=== PATIENT | female | born 1940 | race Caucasian/White ===

== ENCOUNTER 2019-06-13 13:32 | Outpatient (RCR) | payer MEDICARE, OTHER, SELFPAY | END 2019-07-07 23:59 | disposition home or self-care (01) | LOC: SPT 13:32 | PROVIDERS: Family Provider Internal Medicine; PCP Internal Medicine; Referring Provider Internal Medicine; Visit Provider Internal Medicine | DX: H81.10 Benign paroxysmal vertigo, unspecified ear (principal) | CPT/HCPCS: 95992; 97162 ==

== ENCOUNTER 2019-08-19 10:41 | Emergency (ER) | payer MEDICARE, OTHER, SELFPAY ==
[2019-08-19] VITALS (29 sets, daily range): BP systolic 125–153; BP diastolic 61–93; PULSE 79–89; RESP 9–36; TEMP 36.6; O2SAT 92–100; BMI 25.8
--- NOTE | 2019-08-19 10:54 | ED_ITS ---
Entered by Nahomy Zuñiga, acting as scribe for Richard Joya DO HPI - Fall General: Chief Complaint: Fall Stated Complaint: fall Time Seen by Provider: 08/19/19 10:54 History of Present Illness: HPI Narrative: 79yo female presents with right wrist and right elbow pain post fall. Patient was running to the car when she stepped in a hole and fell. She denies any head injury or neck pain. Associated symptoms-after fall: Denies abdominal pain or chest pain Review of Systems Const: Denies: fever, chills, body aches, change in appetite, fatigue or malaise ENMT: Denies: throat pain, ear pain, nasal discharge or nasal congestion Card: Denies: chest pain, edema, shortness of breath on exertion or shortness of breath when lying down Resp: Denies: shortness of breath, productive cough or non-productive cough GI: Denies: abdominal pain, nausea, vomiting, vomiting blood, coffee grounds in vomit, diarrhea, constipation, bloating, blood in stool or black tarry stool : Denies: flank pain, difficulty urinating, painful urination, urinary frequency or urinary urgency Musc: Reports: extremity pain (Right elbow and wrist pain) Skin/Breast: Denies: rash or itching PFSH ED PFSH: Social History Smoking and tobacco status: never smoked Physical Exam Const: COMMON NORMALS: no apparent distress GENERAL APPEARANCE: cooperative and comfortable ORIENTATION/CONSCIOUSNESS: Yes awake, Yes oriented to person, Yes oriented to place and Yes oriented to time HENMT: COMMON NORMALS: normocephalic, head/scalp atraumatic, hearing grossly normal bilaterally, external ears normal, EAC's normal, TM's normal bilaterally, nasal mucous membranes and turbinates normal, moist oral mucous membranes and oropharynx normal HEAD & SCALP: normocephalic and atraumatic NOSE: nasal mucous membranes and turbinates normal EXTERNAL EAR: Yes external ears normal EXTERNAL AUDITORY CANAL: EAC's normal TYMPANIC MEMBRANE: TM's normal bilaterally Eye: COMMON NORMALS: PERRL, EOMs intact bilaterally, conjunctivae normal and no scleral icterus CONJUNCTIVA: Yes conjunctivae normal PUPIL: Yes PERRL Neck/C-Spine: COMMON NORMALS: full ROM, no lymphadenopathy, supple and no JVD Lymph: LYMPHATIC: no lymphadenopathy noted and no lymphedema noted Resp: COMMON NORMALS: normal respiratory effort, no retractions, no use of accessory muscles and clear to auscultation bilaterally AUSCULTATION: clear to auscultation bilaterally Cardio: COMMON NORMALS: no JVD, regular rate, regular rhythm and no murmurs RATE: regular rate RHYTHM: regular rhythm GI: COMMON NORMALS: soft to palpation and no hepatosplenomegaly AUSCULTATION: Yes normoactive bowel sounds PALPATION: Yes soft, No tender, No guarding and Yes no hepatosplenomegaly Extremity: COMMON NORMALS: normal to inspection, normal capillary refill, no clubbing, cyanosis or edema, no calf tenderness and no pedal edema RIGHT UPPER EXTREMITY: Yes elbow joint (Neurovascularly intact however there is obvious deformity suggestive of fracture and/or dislocation on physical exam confirmed) Neuro: SENSORIUM/ORIENTATION: Yes oriented to person, Yes oriented to place and Yes oriented to time Skin: COMMON NORMALS: no rashes or lesions noted GENERAL SKIN EXAM: no rashes or lesions noted Procedures Orthopedic Joint Reduction Joint #1: Time Out Performed: Yes Side: right Joint Reduction Location: elbow Analgesia: procedural sedation Post-reduction neuro exam: intact Post-reduction vascular: intact Post Reduction X-Ray Obtained: Yes Post Reduction X-Ray Results: reduced Splint Applied: Yes Patient Tolerated Procedure: well Additional Comments: Initially reduced under sedation. X-ray came to the post reduction film and the elbow was extended which caused the reduction to be lost. It was reduced again and then held in position in a 90 degree angle and splinted. Dr. Denise happened to be in the department was kind enough to assist us and applied the splint with the elbow at 90 degrees in the hand and forearm pronated. She appears to have a radial head fracture as well as a coronoid process fracture will leave in the splint she will follow-up with Dr. Denise in his office for definitive repair at a later date. Procedural Sedation Indication: fracture/dislocation reduction Preparation: monitoring and evaluation advisor applied, pulse oximeter, supplemental O2 applied, suction/airway equipment at bedside and IV secured Fentanyl: IV Fentanyl dose (mcg): 50 Midazolam: IV Midazolam dose (mg): 3 Patient Tolerated Procedure: well Complications: none Course ED course: Elbow dislocation reduced did slip back out during the post procedure x-ray it was put back into position and then splinted. 90 degrees with forearm pronated patient tolerated well Dr. Denise was kind enough to assist will make arrangements for her to follow-up with Dr. Denise in his office for definitive care. Vital Signs: Vital signs: Vital Signs Temperature 98 F 08/19/19 10:46 Pulse Rate 84 08/19/19 17:42 Respiratory Rate 14 08/19/19 17:42 Blood Pressure 125/79 08/19/19 17:42 Pulse Oximetry 97 08/19/19 17:42 Discharge Plan Discharge Patient Disposition: Home, Self-Care Clinical Impression: Closed fracture of radial head, Dislocation closed, elbow, Fx coronoid proc ulna-closed Condition: Stable Prescriptions: New hydrocodone-acetaminophen 5-325 mg tablet 1 tab PO Q6H PRN (Reason: pain) Qty: 20 RF: 0 No Action meloxicam 15 mg tablet 15 mg PO DAILY RF: 0 alprazolam 0.25 mg tablet 0.25 mg PO DAILY PRN (Reason: UNKNOWN) RF: 0 warfarin 5 mg tablet 5 mg PO DAILY RF: 0 omeprazole 20 mg capsule,delayed release(DR/EC) 20 mg PO DAILY RF: 0 Discharge Orders: Discharge Order (Routine); Ordered 08/19/19 Ordered By: Richard Joya Referrals: Augustine Denise MD [Physician] - Discharge Diet: Advance as tolerated Discharge Activity: Limit activity as instructed Activity Restrictions/Additional Instructions: Case management will call with appointment to orthopedics Discharge Date/Time: 08/19/19 17:43 Coding Level of Care Code ED Child Care Coordinator for Chg Fwd Exam Comprehensive The documentation recorded by the Yogesh melissa Bailey Leadawn, accurately reflects the service I personally performed and the decisions made by Mahnaz fournier Curtis L, DO Aug 19, 2019 10:41
--- NOTE | 2019-08-19 11:02 | XRR_ITS ---
PROCEDURE INFORMATION: Exam: XR Right Shoulder Exam date and time: 08/19/2019 11:52 AM Age: 79 years old Clinical indication: Injury or trauma; Fall; Initial encounter; Blunt trauma (contusions or hematomas; Shoulder; Right; Additional info: Fall pain TECHNIQUE: Imaging protocol: XR Right shoulder. Views: 2 or more views. COMPARISON: No relevant prior studies available. FINDINGS: Bones/joints: 1.1 cm intra-articular loose body versus unusual calcific tendinosis over the right greater tuberosity. Soft tissues: Normal. XR/XR shoulder RT min 2V* [id number] IMPRESSION: 1. 1.1 cm intra-articular loose body versus unusual calcific tendinosis over the right greater tuberosity. 2. No acute findings.
--- NOTE | 2019-08-19 11:02 | XRR_ITS ---
PROCEDURE INFORMATION: Exam: XR Right Elbow Exam date and time: 08/19/2019 11:52 AM Age: 79 years old Clinical indication: Injury or trauma; Fall; Initial encounter; Blunt trauma (contusions or hematomas; Elbow; Right; Additional info: Fall, pain TECHNIQUE: Imaging protocol: XR Right elbow. Views: 1 or 2 views. COMPARISON: US SoftTissue/Extrem Lmt [id number] 08/30/2018 2:14 PM FINDINGS: Bones/joints: Posterior dislocation of the olecranon and radial head with respect to the distal humerus. Displaced intra-articular fracture of the radial head. Soft tissues: Normal. XR/XR elbow RT 2V [id number] IMPRESSION: 1. Posterior dislocation of the olecranon and radial head with respect to the distal humerus. 2. Displaced intra-articular fracture of the radial head.
--- NOTE | 2019-08-19 11:02 | XRR_ITS ---
PROCEDURE INFORMATION: Exam: XR Right Hand Exam date and time: 08/19/2019 1:22 PM Age: 79 years old Clinical indication: Injury or trauma; Fall; Initial encounter; Additional info: Fall pain TECHNIQUE: Imaging protocol: XR Right hand. Views: 3 or more views. COMPARISON: US SoftTissue/Extrem t [id number] 08/30/2018 2:14 PM FINDINGS: Bones/joints: Normal. Soft tissues: Normal. XR/XR hand RT min 3V* [id number] IMPRESSION: No acute findings.
[2019-08-19] MEDS: morphine 4 mg/mL SDV 1 mL 2 MG IVP ×2 (11:22→15:43)
--- NOTE | 2019-08-19 12:27 | XRR_ITS ---
PROCEDURE INFORMATION: Exam: XR Right Wrist Exam date and time: 08/19/2019 1:22 PM Age: 79 years old Clinical indication: Injury or trauma; Fall; Initial encounter; Blunt trauma (contusions or hematomas; Wrist; Right; Additional info: Fall pain TECHNIQUE: Imaging protocol: XR Right wrist. Views: 3 or more views. COMPARISON: CR XR hand RT min 3V* [id number] 08/19/2019 11:30 AM FINDINGS: Bones/joints: Normal. Soft tissues: Normal. XR/XR wrist RT w scaphoid [id number] IMPRESSION: No acute findings.
[2019-08-19] MEDS: fentaNYL 50 mcg/mL INJ 2mL IVP (13:49)
[2019-08-19] MEDS: midazolam 1 mg/mL INJ 2 mL 3 MG IVP (13:50)
--- NOTE | 2019-08-19 14:00 | PC.NURSE ---
Conscious sedation reduction of right elbow. Patient sedated with 50mcg of Fentanyl and 3mg of Versed. Patient tolerated procedure well. Procedure completed at 1358. Post procedure Vitals: BP 153/89 P 85, 98% O2 3L NC, RR 16.
--- NOTE | 2019-08-19 14:05 | PC.NURSE ---
Patient beginning to arouse and ask if procedure is over. Patient reporting some pain in right elbow but denies other complaints at this time. BP 139/79 P 85 97% RR 16
--- NOTE | 2019-08-19 14:06 | XRR_ITS ---
PROCEDURE INFORMATION: Exam: XR Right Elbow Exam date and time: 08/19/2019 2:24 PM Age: 79 years old Clinical indication: Injury or trauma; Fall; Initial encounter; Blunt trauma (contusions or hematomas; Elbow; Right; Additional info: Post reduction TECHNIQUE: Imaging protocol: XR Right elbow. Views: 1 or 2 views. COMPARISON: CR XR elbow RT 2V [id number] 08/19/2019 11:30 AM FINDINGS: Bones/joints: There has been reduction of the elbow dislocation. There is a large elbow joint effusion. There is a markedly comminuted fracture of the radial head with multiple bone fragments in the anterior elbow joint. Soft tissues: Normal. XR/XR elbow RT 2V [id number] IMPRESSION: 1. There has been reduction of the elbow dislocation. 2. There is a markedly comminuted fracture of the radial head with multiple bone fragments in the anterior elbow joint.
--- NOTE | 2019-08-19 15:44 | CTR_ITS ---
PROCEDURE INFORMATION: Exam: CT Right Upper Extremity Without Contrast, Elbow Exam date and time: 08/19/2019 4:29 PM Age: 79 years old Clinical indication: Injury or trauma; Fall; Initial encounter; Blunt trauma (contusions or hematomas; Elbow; Right; Additional info: Dislocation/fracture TECHNIQUE: Imaging protocol: CT of the Right upper extremity without contrast was performed. Exam focused on the elbow. Total DLP: 1744.8 mGy-cm Radiation optimization: All CT scans at this facility use at least one of these dose optimization techniques: automated exposure control; mA and/or kV adjustment per patient size (includes targeted exams where dose is matched to clinical indication); or iterative reconstruction. COMPARISON: CR XR elbow RT 2V [id number] 08/19/2019 2:03 PM, two-view left elbow dated August 19, 2019, 11:35 a.m.. FINDINGS: Bones/joints: Severe comminuted displaced intra-articular fractures of the radial head and neck with with no pieces of the radial head normally articulated with the capitellum. Interval reduction of the previously noted elbow dislocation with normal articulation of the medial elbow/olecranon. Probable small comminuted displaced fractures of the coronoid process of the ulna. Soft tissues: Normal. CT/CT elbow RT wo con* [id number] IMPRESSION: 1. Severe comminuted displaced intra-articular fractures of the radial head and neck with with no pieces of the radial head normally articulated with the capitellum. 2. Interval reduction of the previously noted elbow dislocation with normal articulation of the medial elbow/olecranon. 3. Probable small comminuted displaced fractures of the coronoid process of the ulna. Radiation Dose CTDIVOL = (mGy): DLP = 1744.8 (mGy-cm)
[2019-08-19] MEDS: morphine 4 mg/mL SDV 1 mL IVP (17:11)
--- NOTE | 2019-08-21 13:47 | DCPLANNER ---
inside sales manager had message to schedule a follow up appointment for patient with ortho. inside sales manager called the ortho clinic, spoke with Pat, gave clinic patients information. inside sales manager was told that patients information would be printed and reviewed. Clinic will call onsite case manager and patient with appointment information.
--- NOTE | 2019-08-22 10:50 | DCPLANNER ---
Patient has a follow up appointment scheduled for 08.22.19 at 1:[address] Denise.
--- NOTE | 2019-08-23 10:36 | DCPLANNER ---
Patient attended appointment scheduled for 08.22.19 with ortho.
== END 2019-08-19 17:43 | disposition home or self-care (01) ==
PROVIDERS: Emergency Provider Family Medicine; Family Provider Internal Medicine; PCP Internal Medicine
DX: S52.121A Displaced fracture of head of right radius, initial encounter for closed fracture (principal); S52.131A Displaced fracture of neck of right radius, initial encounter for closed fracture; W19.XXXA Unspecified fall, initial encounter
CPT/HCPCS: 12345; 24655; 73030; 73070; 73110; 73130; 73200; 96374; 96375; 96376; 99283; 99284; J2250; J2270; J3010

== ENCOUNTER 2019-08-25 10:14 | Day surgery (SDC) | payer MEDICARE, OTHER, SELFPAY ==
[2019-08-24 10:08] VITALS: BMI 26.3
--- NOTE | 2019-08-24 10:49 | ECG_ITS ---
Measurements Intervals [place] Rate: 76 P: 56 HI: 151 QRS: 1 QRSD: 89 T: 30 QT: 366 QTc: 413 SINUS RHYTHM LOW QRS VOLTAGE IN PRECORDIAL LEADS [QRS DEFLECTION < 1.0 mV IN CHEST LEADS] PATTERN CONSISTENT WITH PULMONARY DISEASE No previous ECG available for comparison Electronically Signed On 08-24-2019 12:44:55 CDT by Seth Watt [email or web address]
[2019-08-24 11:12] LABS: INR 0.96 (0.8-1.2)
--- NOTE | 2019-08-24 11:27 | ANES.PREANE2 ---
Pre-Anesthetic Assessment Pre-Anesthetic Assessment: Height/Weight: Height 1.68 m Weight 73.936 kg Preop Diagnosis: Fracture dislocation right Proposed Procedure: Operation Date: 08/25/19 11:50 Proposed Procedures p Radial head replacement with repair of lateral ulnar collateral ligament 16672, 93378 S52.123A S53.106A(Right) - Augustine eDnise MD Social: Social History: No alcohol and No tobacco Exam: Pre-Anes Outpt Exam: alert, oriented x 3, clear to auscultation bilaterally and regular rate & rhythm Airway: Submandibular: WNL Cervical ROM: WNL MP: 1 Dentition: Other (upper front caps, ) History/ROS: No significant history except as noted Pulmonary: Pulmonary: None reported CV/HEM: CV/HEM: DVT and None reported : : None reported Hepatic: Hepatic: None reported GI: GI: GERD (controlled) Metabolic: Metabolic: None reported Musc/skel: Musc/skel: Lower Back Pain Neuropsych: Neuropsych: None reported Anesthetic Plan: ASA status: 2 Anesthesia: Anesthesia Evaluation, Eval. for regional block (Right ISB) and General Risk of > 500 ml blood loss (7ml/kg in children): No PFSH Anesthesia PFSH: Medical History Hx of blood clots Family History Brother Diabetes Father Stroke Social History Smoking and tobacco status: never smoked Alcohol intake: never Data Anesthesia Other Labs: Laboratory Results - last 48 hr 08/24/19 10:30 PT 12.80 INR 0.96 Cardiac Studies: No Data to Display
[2019-08-25] VITALS (15 sets, daily range): BP systolic 144–201; BP diastolic 81–118; PULSE 83–94; RESP 12–99; TEMP 36.2–37.3; O2SAT 90–100
--- NOTE | 2019-08-25 | XR_ITS ---
WS: [id number] XR elbow RT 2V [id number] REASON FOR EXAM: ORIF ELBOW FINDINGS: Radial head replacement in the ER utilizing C-arm fluoroscopy. The prosthesis is seen replacing the radial head. The alignment is satisfactory. XR/XR elbow RT 2V [id number] IMPRESSION: Radial head replacement satisfactory alignment conclusion the exam. Sukhdeep gonzalez se note there is calcification along the medial collateral ligament.
--- NOTE | 2019-08-25 | SCC_ITS ---
Procedure Done: Right radial head replacement/lateral ligament repair Fluoroscopic guidance was provided to Dr. Denise by the radiology department. C-arm images of the right elbow were saved for the patient's permanent record. [place]
[2019-08-25] MEDS: sodium chloride 0.9% 1,000 ML 30 ML IV (11:24)
--- NOTE | 2019-08-25 11:30 | ANES.PREANE2 ---
Pre-Anesthetic Assessment Pre-Anesthetic Assessment: Height/Weight: Height 1.68 m Weight 73.936 kg Preop Diagnosis: Fracture dislocation right Proposed Procedure: Operation Date: 08/25/19 11:50 Proposed Procedures p Radial head replacement with repair of lateral ulnar collateral ligament 38182, 49006 S52.123A S53.106A(Right) - Augustine Denise MD Last intake: Intake Last Liquid Date 08/24/19 Last Liquid Time 18:30 Last Solid Date 08/24/19 Last Solid Time 18:30 Exam: Pre-Anes Outpt Exam: alert, oriented x 3, clear to auscultation bilaterally and regular rate & rhythm Airway: Submandibular: WNL Cervical ROM: WNL MP: 1 Dentition: Caps (right top 2nd) CV/HEM: Comments: 2 blocks/2FOS without angina/BETHEA GI: GI: GERD and Hiatus hernia Comments: well controlled Musc/skel: Musc/skel: Lower Back Pain Comments: right radiculopathy Anesthetic Plan: ASA status: 3 Anesthesia: General Meds/Allergies Current Medications: Current Medications Generic Name Dose Route Start Last Admin Trade Name Freq PRN Reason Stop Dose Admin Sodium Chloride 1,000 mls @ 30 ml s/hr 08/25/19 11:00 08/25/19 11:24 Sodium Chloride 0.9% IV 08/26/19 10:59 30 mls/hr .Q24H LUPE Administration PFSH Anesthesia PFSH: Medical History Hx of blood clots Family History Brother Diabetes Father Stroke Social History Smoking and tobacco status: never smoked Alcohol intake: never Data Anesthesia Other Labs: Laboratory Results - last 48 hr 08/24/19 10:30 PT 12.80 INR 0.96 Cardiac Studies: No Data to Display
--- NOTE | 2019-08-25 11:32 | W.PM.OPSUD ---
Surgery/Procedure H&P Update DATE OF PROCEDURE: August 25, 2019 DATE H&P PERFORMED: 08/22/19 PREOP DIAGNOSIS: Fracture dislocation right PLANNED PROCEDURE: Operation Date: 08/25/19 11:50 Proposed Procedures p Radial head replacement with repair of lateral ulnar collateral ligament 51952, 72776 S52.123A S53.106A(Right) - Augustine Denise MD
--- NOTE | 2019-08-25 13:05 | PM.OP ---
Operative Report Date of procedure: August 25, 2019 Pre-op Diagnosis: Fracture dislocation right elbow Post-op diagnosis: same Post-op Findings: The patient had a comminuted fracture of the right radial head after a posterior lateral dislocation Procedure Done: Right radial head replacement/lateral ligament repair Implants: Quiroz Evolve 22 mm +2 radial head, 6.5 mm stent Pathology: none sent Anesthesia: General Tourniquet time (min): 45 Complications: None Findings: Patient had a comminuted fracture of the radial head consisting of 4 fragments. The elbow had instability under fluoroscopy as it was brought past 45 degrees short of full extension subluxation was noted Condition: stable Disposition: PACU Brief History: The patient is a 79-year-old female who fell 6 days ago with a resulting elbow dislocation with recurrent dislocations noted in the emergency room. CT scan revealed a comminuted radial head fracture. Surgical stabilization was chosen to replace the radial head and provide lateral instability and repair lateral ligaments in an effort to gain a full stable range of motion Procedure: The patient was taken to the operating room and given a general anesthesia. She was prepped and draped in the supine position with her right arm exposed over a fracture table. A 5 cm long incision was made beginning just proximal to the lateral epicondyle and dissection was carried down through the extensor musculature. Detachment was seen of the deep capsule off of the lateral condyle. Extensor carpi ulnaris tendon was a split allowing easy access to the comminuted radial head fragments. The fragments were removed. An oscillating saw was used to flatten the radial shaft. Subsequentially reamers were passed up to 7.5 mm where resistance was felt. The radial head was reassembled on the back table and the articular surface measured at 22 mm with a height of +2 mm. The radial head of that dimension was assembled onto a 6.5 mm stem. A trial reduction was accomplished and the construct visualized under fluoroscopy. The ulnohumeral joint appeared congruent and the elbow stable until 30 degrees of extension were reached. The final head and stem were assembled on the back table and inserted. Next a 1.8 mm Q fix mini anchor was placed in the lateral condyle. The posterior lateral capsule including fibers of the lateral ulnar collateral ligament were grasped and the free ends of that Q fix passed through that ligament. These were secured with simple half hitches. The sutures were then brought through the anterior and posterior musculature repairing those structures over the top and to bone. The split in the extensor digitorum commonness was closed with 2-0 Vicryl. The elbow was then brought through a range of motion with stability noted throughout. The skin edges were infiltrated with 12 cc of 0.5% Marcaine. Deep tissues were closed with 2-0 Vicryl and the skin with skin nathanael. Xeroflo gauze, 4 x 4's, web roll, and Pradeep wrap were applied. The patient was placed in a hinged elbow brace locked at 90 degrees. She was extubated taken recovery in stable condition.
[2019-08-25] MEDS: fentaNYL 50 mcg/mL INJ 2mL IVP ×2 (13:16→13:21)
[2019-08-25] MEDS: morphine 4 mg/mL SDV 1 mL 2 MG IVP ×2 (13:30→13:35)
[2019-08-25] MEDS: HYDROmorphone 1 mg/mL INJ 1 mL IVP (14:25)
[2019-08-25] MEDS: ondansetron 2 mg/ML SDV 2 mL 4 MG IVP (16:00)
== END 2019-08-25 16:15 | disposition home or self-care (01) ==
PROVIDERS: Anesthesiology; Family Provider Internal Medicine; PCP Internal Medicine; Visit Provider Orthopaedic Surgery
PROC: (CPT 24343; principal; 2019-08-25 11:50)
DX: S53.104A Unspecified dislocation of right ulnohumeral joint, initial encounter (principal); X58.XXXA Exposure to other specified factors, initial encounter; Z79.01 Long term (current) use of anticoagulants
CPT/HCPCS: 24343; 24666; 12345; 73070; 76000; 85610; 93005; 93010; 96374; 96375; C1713; C1776; J0690; J1170; J1580; J2001; J2270; J2405; J2704; J3010; J3490; J7030

== ENCOUNTER → 2019-09-18 09:21 | Outpatient (BNVA) | payer MEDICARE, OTHER, SELFPAY | PROVIDERS: Family Provider Internal Medicine; PCP Internal Medicine; Visit Provider Orthopaedic Surgery | DX: Z48.89 Encounter for other specified surgical aftercare (principal); S52.121A Displaced fracture of head of right radius, initial encounter for closed fracture; X58.XXXA Exposure to other specified factors, initial encounter; M25.571 Pain in right ankle and joints of right foot | CPT/HCPCS: 73080; 73610 ==

== ENCOUNTER 2019-09-20 08:31 | Outpatient (RCR) | payer MEDICARE, OTHER, SELFPAY | END 2019-10-05 23:59 | disposition home or self-care (01) | LOC: SOT 08:31 | PROVIDERS: Absent Provider Orthopaedic Surgery; Family Provider Internal Medicine; PCP Internal Medicine; Visit Provider Orthopaedic Surgery | DX: Z47.89 Encounter for other orthopedic aftercare (principal) | CPT/HCPCS: 97035; 97110; 97140; 97166 ==

== ENCOUNTER 2019-10-06 06:00 | Outpatient (RCR) | payer MEDICARE, OTHER, SELFPAY | END 2019-10-24 23:00 | disposition home or self-care (01) | LOC: SOT 06:00 | PROVIDERS: PCP Internal Medicine; Visit Provider Orthopaedic Surgery | DX: Z47.89 Encounter for other orthopedic aftercare (principal) | CPT/HCPCS: 97035; 97110; 97140 ==

== ENCOUNTER 2019-11-07 11:41 | Outpatient (CLI) | payer MEDICARE, OTHER, SELFPAY ==
[2019-11-07 13:01] LABS: Basophils % 0.8 %; Eosinophils # 0.1 10^3/uL (0.0-0.8); Eosinophils % 1.5 %; Hematocrit 41.4 % (37.0-47.0); Hemoglobin 13.4 g/dL (11.5-15.3); Lymphocytes # 1.6 10^3/uL (0.8-4.8); Lymphocytes % 30.4 %; Mean Corpuscular HGB Conc 32.4 g/dL (30.0-36.0); Mean Corpuscular Hemoglobin 30.5 pg (28.0-34.0); Mean Corpuscular Volume 94.1 fL (81-99); Mean Platelet Volume 11.6 fL (7.4-10.4); Monocytes # 0.4 10^3/uL (0.2-0.9); Neutrophils # 3.1 10^3/uL (1.8-7.7); Neutrophils % 60.1 %; Nucleated Red Blood Cells % 0 %; Platelet Count 274 10^3/cmm (130-400); Red Cell Distribution Width 13.4 % (12.1-15.1); White Blood Count 5.2 10^3/uL (4.0-10.0)
[2019-11-07 13:14] LABS: Alanine Aminotransferase 23 U/L (0-33); Albumin Level 3.8 g/dL (3.5-5.2); Alkaline Phosphatase 47 IU/L (35-105); Anion Gap 16.8 (5-19); Aspartate Amino Transferase 30 U/L (0-32); Blood Urea Nitrogen 11 mg/dL (8-23); Calcium 9.8 mg/dL (8.5-10.5); Carbon Dioxide 24 mmol/L (22-29); Chloride 101 mmol/L (98-107); Ferritin 130 ng/mL (15-150); Globulin 2.9 g/dL (1.3-4.6); Glucose 163 mg/dL (65-115); Iron 79 ug/dL (37-145); Osmolality Calculated 286 mOsm/kg (285-295); Percent Saturation 28.7 % (20-50); Potassium 3.8 mmol/L (3.5-5.1); Sodium 138 mmol/L (136-145); Total Bilirubin 0.3 mg/dL (0.15-1.2); Total Iron Binding Capacity 275 mcg/dl; Total Protein 6.7 g/dL (6.6-8.7); Unsaturated Iron Binding 196 ug/dL (112-347)
--- NOTE | 2019-11-11 11:24 | ONC FU_ITS ---
Dr. Velez Patient Follow-Up Note Patient: Kimberli Everett Unit #: [id number]: 1940 Dicatated By: Jason Velez M.D.Date of Visit:Nov 07, 2019 Onc Med Follow-up/Prog Note Chief Complaint: Hemochromatosis. History of Present Illness: This is a 79 year-old woman with hemochromatosis/iron overload. She had seen Dr. Carolina initially in February 2014. At that time she was complaining of right upper quadrant abdominal pain, and she complained of pain in her right hip and right leg. She also complained of severe weakness/fatigue. Her lab studies at that time included an unremarkable CBC showing hemoglobin 14.4 g, white blood cell count 5500, and platelet count 198,000. Comprehensive metabolic profile showed mildly elevated SGOT and SGPT levels with normal bilirubin and alkaline phosphatase. Her serum iron and transferrin saturation were at the upper limit of normal at 149 mcg/dL and 54% respectively. Her serum ferritin was significantly elevated at 2065 ng/mL. Viral hepatitis profile was negative. 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 It was negative for the H63D and the S65C mutations. CT abdomen/pelvis on 03/16/14 showed no acute abnormality. The liver was noted to be diffusely decreased in attenuation, consistent with fatty infiltration. The report did not mention whether that had changed at all compared to the previous study in 2009. Liver biopsy on 03/21/2014 showed moderate iron deposition (2+/4+) consistent with hemochromatosis. There was noted to be macrovesicular fatty change but with no significant active inflammation. She started a phlebotomy program, initially with a half unit phlebotomy and subsequently with full phlebotomies weekly. She initially felt somewhat weaker and lightheaded following the phlebotomies. A repeat ferritin level from this laboratory on 04/09/2014 was down to 1233 ng/mL. She then continued the phlebotomies, but just a half unit at a time. As of June 2014 the ferritin had declined just slightly, to 1120 ng/mL. However, on a repeat study in September 2014 it had declined significantly, to 99.9 ng/mL. Her transferrin saturation at that point was low at 7.9%, and the phlebotomies were stopped. I had seen her for a scheduled a visit on 06/19/2015. At that time she reported that she still had pain and swelling in the right leg following the surgery in November 2014. She complained of being tired, but she was not having shortness of breath or chest pain. A venous Doppler of the right leg was positive for deep vein thrombosis involving the right superficial femoral and popliteal veins and the peroneal trunk and to a lesser extent the right common femoral vein. The thrombus was partially occlusive. She then started on anticoagulation with rivaroxaban. She was later transitioned to Lovenox and then to warfarin. I had seen her for a scheduled follow-up visit on 06/16/2017. At that time her ferritin level had increased 149 ng/mL, and I did have her restart 1/2 unit phlebotomies monthly. As of November 2017 the ferritin was back down to 35.9 ng/mL with transferrin saturation 14.2%, and at that point I did stop her phlebotomies. Her medical history is otherwise significant for degenerative arthritis/degenerative disease of the spine and GERD. In 2009 she had received 2 doses of iron sucrose IV. She had a low serum iron at that time, but she was not actually anemic. She has had no other prior medical illnesses. In November 2014 she fell and sustained fractures to the right ankle, including a distal fibula fracture and a posterior shelf tibial fracture. She required open reduction/fixation. She is a nonsmoker, and she does not drink alcohol. INTERIM HISTORY: She is seen for a scheduled visit. She has not been feeling very good, but that seems largely related to the fact that she is still depressed over her 's . She says her energy is not good, but she just attributes that to being lazy and not wanting to do anything. She has doing light work at home, though. ECOG score is 1. Last week she had seen Dr. Carolina due to sharp pains in her abdominal area. She was started on antibiotic therapy with Cipro and Flagyl for suspected diverticulitis. She says the pain is getting better. She has had decrease in appetite associated with the antibiotics. She has not had fever or night sweats. She does not complain of shortness of breath, cough, or chest pain. She has had some nausea. Her acid reflux is managed pretty well with omeprazole. Bowel function has been okay, though she sometimes has urgency with defecation. She has some urinary frequency and nocturia. She has chronic back pain, which is managed adequately with meloxicam. She has been having headache in the occipital area, which tends to be worse when she is lying in bed. She also has been having significant problems with balance/equilibrium. She sometimes has numbness in her right leg, from the knee down to the toes. She also has some tingling in her arms and hands. Medications: Acetaminophen ER 1 Tablet (of 650 mg) Tablet, controlled release Oral b.i.d. PRN, ALPRAZolam 1 (0.25 mg) Tablet Oral daily PRN, Cipro 1 (500 mg) Tablet Oral b.i.d., Coumadin 1 Tablet (of 5 mg) Oral daily, Flagyl (500 mg) Capsule Oral t.i.d., Meloxicam 1 Tablet (of 15 mg) Oral daily, Omeprazole 1 (20 mg) Capsule Delayed Release Oral daily Allergies: No Known Allergies. Review of Systems: Constitutional - She generally feels depressed. Her energy is low and she doesn't feel like doing much, but she is able to do light work in and around the house. Her appetite is good and weight is stable. No fever, night sweats, or hot flashes. ECOG score is 1, ENMT - She is having sinus drainage. No mouth sores. No sore throat or difficulty swallowing, Hematologic/Lymphatic - No abnormal bruising or bleeding, Respiratory - No shortness of breath. No cough. No pleuritic pain or hemoptysis, Cardiovascular - No angina pain. No palpitations, Gastrointestinal - No nausea or vomiting. Her heartburn is well controlled with Prilosec. No diarrhea or constipation. No blood in the stool or black stools. She is currently on Flagyl and Cipro for diverticulitis, Genitourinary (F) - No dysuria or hematuria. No urinary frequency. No urgency or incontinence, Musculoskeletal - Her arthritis pain is adequately managed with meloxicam, Integumentary - No skin complications, Neurologic - She has headaches. She is having persistent dizziness. She has intermittent numbness in her right leg and toes. She also has some tingling in her hands and fingers. No other focal neurologic symptoms, Psychiatric - She is taking a low dose of alprazolam for anxiety. She is still significantly depressed since losing her . No insomnia. Vital Signs: Performed on Nov 07, 2019 13:11 Height - 66.00 in Weight - 163.6 lbs (HIGH) BSA - 1.84 sq.m BMI - 26.41 Temperature - 97.7 F (LOW) Pulse - 87 /min Respiration - 17 /min BP - 120/71 mm(hg) O2 Sat - 96 % Pain - 0 Physical Examination: Constitutional - She looks pretty good generally, Eyes - Sclerae nonicteric. Conjunctivae clear, ENMT - There are no other lesions noted in the oral cavity, Hematologic/Lymphatic - No cervical, clavicular, or axillary adenopathy, Respiratory - Lungs are clear with good air movement bilaterally, Cardiovascular - Heart rhythm is regular. There is a II/ systolic murmur. There is no gallop or rub noted, Abdomen - Soft. Liver and spleen are not enlarged. There is no abdominal mass or ascites noted and there is no inguinal adenopathy, Extremities - No edema, Neurologic - No focal neurologic deficits noted. Lab/Imaging: Test performed on Nov 07, 2019 11:58 Ferritin 130 ng/mL Iron 79 mcg/dL Sodium 138 mmol/L Iron Binding Capacity (TIBC) 275 mcg/dl Potassium 3.8 mmol/L % Iron Saturation 28.7 % Chloride 101 mmol/L CO2 24 mmol/L UIBC 196 mcg/dL Anion Gap 16.8 BUN 11 mg/dL Creatinine 0.7 mg/dL Cr Clearance (Est) 78.8500 mL/min Glucose 163 mg/dL Calcium 9.8 mg/dL Protein, Total 6.7 g/dL Albumin 3.8 g/dL Globulin 2.9 g/dL Bilirubin, Total 0.3 mg/dL ALT (SGPT) 23 U/L AST (SGOT) 30 U/L Alkaline Phosphatase 47 IU/L WBC 5.2 10 3/uL RBC 4.40 10 6/uL HGB 13.4 g/dL HCT 41.4 % MCV 94.1 fL MCH 30.5 pg MCHC 32.4 g/dL RDW 13.4 % Platelet Count 274 10 3/cmm MPV 11.6 fL Neutrophils 3.1 10 3/uL Lymphocytes 1.6 10 3/uL Monocytes 0.4 10 3/uL Eosinophils 0.1 10 3/uL Basophils 0.0 10 3/uL Neutrophil % 60.1 % Lymphocyte % 30.4 % Monocyte % 7.0 % Eosinophil % 1.5 % Basophils % 0.8 % Impression: 1. 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 Based on the ferritin level and the results of the liver biopsy, she did appear to have associated iron overload. She had complained of right upper quadrant abdominal pain, and she had mildly elevated SGOT/SGPT levels along with CT evidence of fatty infiltration in the liver. The fatty infiltration also was confirmed by liver biopsy, but the clinical significance of that finding has been uncertain. 2. She started a phlebotomy program for the hemochromatosis in March 2014. She was able to tolerate only half unit phlebotomies. Initially she was showing just a very gradual decline in her ferritin level, but it then dropped rather precipitously, and by September 2014 she actually appeared to be iron deficient. 3. She has since then been monitored on observation. As of her followup visit on 06/19/2015 her transferrin saturation and ferritin levels were in target range. 4. In June 2015 she had reported persistent pain and swelling in the right leg following open reduction/fixation for a traumatic fracture in November 2014. A venous Doppler did show evidence of partially occlusive deep vein thrombosis of the right leg. She was then started on anticoagulation with rivaroxaban. In November 2015 her anticoagulation was transitioned to Lovenox and subsequently to warfarin. 5. Her medical illnesses otherwise have been limited to GERD and degenerative arthritis. As of March 2016 her serum iron studies and ferritin remained in target range. She was then followed on observation/expectant management for the hemochromatosis. She continued anticoagulation with warfarin. As of her follow-up visit in June 2017 her ferritin at increased slightly, and at that point she restarted 1/2 unit phlebotomies monthly. As of November 2017 her transferrin saturation and ferritin levels were back down and she then stopped phlebotomies. During follow-up, the transferrin saturation and ferritin had basically remained stable. In August 2019 she suffered a traumatic fracture of the right radial head. She underwent open reduction with right radial head replacement/lateral ligament repair. She had good recovery from the surgery, but she has still not felt good generally. Much of that she attributes to ongoing depression followiong her 's . Recently she has been on antibiotic therapy for suspecteddiverticulitis. Those symptoms have been improving, but she reports having significant dizziness/dysequilibrium. Since her last visit, there has been increase in both the transferrin saturation and the ferritin level, which is now a little above target range. Plan: She will complete the antibiotic therapy as prescribed. I did suggest that she try stopping meloxicam, to see if that will help with her dizziness. If not, I will have her evaluated with head MRI. I will tentatively plan a follow-up visit in 3 months. If the transferrin saturation and ferritin continue to increase, I will restart phlebotomies. Signed By: Jason Velez M.D. <<Signature on File>>
== END 2019-11-07 11:42 | disposition home or self-care (01) ==
LOC: ONCMED 11:45
PROVIDERS: PCP Internal Medicine; Visit Provider Internal Medicine Medical Oncology
DX: E83.110 Hereditary hemochromatosis (principal); R42 Dizziness and giddiness; K76.0 Fatty (change of) liver, not elsewhere classified; K21.9 Gastro-esophageal reflux disease without esophagitis; M19.90 Unspecified osteoarthritis, unspecified site; F32.9 Major depressive disorder, single episode, unspecified; Z86.718 Personal history of other venous thrombosis and embolism; Z79.01 Long term (current) use of anticoagulants; Z79.2 Long term (current) use of antibiotics
CPT/HCPCS: 36415; 80053; 82728; 83540; 83550; 85025; 99214

== ENCOUNTER 2019-11-20 07:49 | Outpatient (CLI) | payer MEDICARE, OTHER, SELFPAY ==
--- NOTE | 2019-11-20 07:57 | MR_ITS ---
WS: [id number] MRI CERVICAL SPINE NONCONTRAST AND CONTRAST TECHNIQUE: Sagittal T1, T2 and STIR imaging. Axial T2, gradient, and fiesta imaging. Post gadolinium imaging. CLINICAL INFORMATION: NUMBNESS BOTH ARMS NUMBNESS RIGHT LEG NECK AND BACK PAIN COMPARISON: None. FINDINGS: Straightening with slight reversal the normal cervical lordosis. No high-grade central canal narrowin g. Cord signal is normal. Mild disc bulging mid cervical spine at C3-C4 C4-C5 and C5-C6. No abnormal gadolinium enhancement. No evidence of metastatic disease. C2-C3: Normal. C3-C4: Mild disc osteophytic ridging. Slight effacement of ventral thecal sac. Spinal canal and shon en are patent. C4-C5: Small central disc osteophyte protrusion. Mild facet arthropathy. Mild left and no significant right foraminal narrowing. Mild central canal stenosis. Mild facet arthropathy. C5-C6: Disc osteophyte complex with endplate ridging. Mild central canal stenosis. Moderate right and mild left bony foraminal narrowing. Mild facet arthropathy. C6-7: Mild disc osteophyte complex with endplate ridging. Mild central canal stenosis. Mild left and no significant right foraminal narrowing. Mild facet arthropathy C7-T1: Normal. Visualized brain stem structures: Normal. Prevertebral soft tissues: Normal. MR/MR cervical spine wo/w [id number] IMPRESSION: 1. Straightening with slight reversal of the normal cervical lordosis. 2. No abnormal gadolinium enhancement. 3. Cord signal is normal. 4. Disc osteophyte complex C5-C6 with mild central canal stenosis and moderate right foraminal narrowing. 5. Mild central canal stenosis C4-C5 and C6-C7.
--- NOTE | 2019-11-20 07:57 | MR_ITS ---
WS: [id number] MRI HEAD WITH CONTRAST TECHNIQUE: Sagittal T1, T2 axial, T2 axial FLAIR, axial susceptibility weighted imaging, axial diffus ion weighted images, and coronal T2 images were obtained. Pre and post-T1 axial and post T1 coronal i mages. ADC and FSPGR images. CLINICAL INFORMATION: HEADACHE DIZZINESS COMPARISON: None. FINDINGS: No evidence of restricted diffusion to suggest acute ischemia. Ventricular system and basal cisterns are patent. Mild small vessel changes. Moderate parenchymal volume loss. Normal posterior fossa. Norm al vascular flow voids at the skull base. No extra-axial fluid collections. No evidence of mass or mass effect. Paranasal sinuses and mastoid air cells well aerated. Mild mucosa l thickening in the paranasal sinuses. Normal optic chiasm and pituitary infundibulum. Mild symmetric atrophy involving the temporal lobes and hippocampal formations. No hemosiderin on susceptibly weighted images. No abnormal gadolinium enhancement. Normal optic chiasm and pituitary infundibulum.Normal dural venou s sinuses. MR/MR head wo/w con [id number] IMPRESSION: 1. No evidence of restricted diffusion to suggest acute ischemia. 2. Mild small vessel changes with moderate parenchymal volume loss. 3. No abnormal intracranial enhancement. No intracranial enhancing lesions. 4. No hemosiderin on susceptibly weighted images. 5. Paranasal sinuses and mastoid air cells are well aerated.
== END 2019-11-20 07:50 | disposition home or self-care (01) ==
LOC: RADWPI 07:53
PROVIDERS: PCP Internal Medicine; Visit Provider Internal Medicine Medical Oncology
DX: R51 Headache (principal); R42 Dizziness and giddiness; M54.2 Cervicalgia; M54.9 Dorsalgia, unspecified; R20.0 Anesthesia of skin; M25.78 Osteophyte, vertebrae; M48.02 Spinal stenosis, cervical region
CPT/HCPCS: 70553; 72156; A9579

== ENCOUNTER 2019-11-22 09:53 | Outpatient (CLI) | payer MEDICARE, OTHER, SELFPAY ==
--- NOTE | 2019-11-22 10:03 | MR_ITS ---
WS: [id number] MRI LUMBAR SPINE WITH CONTRAST TECHNIQUE: Sagittal T1, T2 and STIR imaging. Axial T1 and T2 imaging. Post gadolinium imaging was obt ained. CLINICAL INFORMATION: RIGHT LEG NUMBNESS COMPARISON: MRI lumbar February 26, [address] August 24, 2018 FINDINGS: Mild lumbar curve. No acute compression. Chronic anterior wedging at L2 is unchanged. Previously desc ribed herniated disc material at L3-4 appears improved with disc involution. L1-L2: Normal. L2-L3: Mild annular bulging. Mild facet arthropathy. Spinal canal and foramen are patent. L3-L4: Mild annular bulging with narrowing of the subarticular recess bilaterally. Slight encroachmen t traversing L4 nerve roots. Mild left and no significant right foraminal narrowing. Mild facet arthr opathy. Spinal canal is patent. L4-L5: Mild annular bulging with slight effacement of ventral thecal sac. Narrowing of the subarticul ar recess bilaterally. Encroachment on the traversing L5 nerve roots. Mild right and no significant l eft foraminal narrowing. Mild facet arthropathy. L5-S1: Mild annular bulging with osteophytic ridging. Slight effacement of ventral thecal sac. Spinal canal and foramen are patent. Mild facet arthropathy. Small right renal cyst. Mild central canal stenosis in cervical spine seen on the smoking tobacco cutter operator imaging. MR/MR lumbar spine wo/w con [id number] IMPRESSION: 1. Mild lumbar curve. Chronic anterior wedging at L2. No high-grade central ca nal stenosis. 2. Previously described L3-4 disc herniation has improved with disc involution . Mild narrowing of the L3-4 subarticular recess today with mild left foraminal narrowing. 3. Annular bulging L4-5 with narrowing of the subarticular recess bilaterally and encroachment traversing L5 nerve roots. Mild right foraminal narrowing. 4. Shallow central protrusion L5-S1. Slight effacement of ventral thecal sac. Spinal canal and foramen are patent at this level.
== END 2019-11-22 09:54 | disposition home or self-care (01) ==
LOC: RADWPI 10:02
PROVIDERS: Family Provider Internal Medicine; PCP Internal Medicine; Visit Provider Internal Medicine Medical Oncology
DX: M54.2 Cervicalgia (principal); M54.9 Dorsalgia, unspecified; R20.0 Anesthesia of skin; M51.27 Other intervertebral disc displacement, lumbosacral region; M51.26 Other intervertebral disc displacement, lumbar region; M48.56XA Collapsed vertebra, not elsewhere classified, lumbar region, initial encounter for fracture
CPT/HCPCS: 72158; A9579

== ENCOUNTER 2020-02-20 14:25 | Outpatient (CLI) | payer MEDICARE, OTHER, SELFPAY ==
[2020-02-20 14:55] LABS: Basophils % 0.7 %; Eosinophils # 0.1 10^3/uL (0.0-0.8); Eosinophils % 1.2 %; Hematocrit 42.4 % (37.0-47.0); Hemoglobin 13.7 g/dL (11.5-15.3); Lymphocytes # 2.2 10^3/uL (0.8-4.8); Lymphocytes % 37.2 %; Mean Corpuscular HGB Conc 32.3 g/dL (30.0-36.0); Mean Corpuscular Volume 92.8 fL (81-99); Mean Platelet Volume 10.8 fL (7.4-10.4); Monocytes # 0.3 10^3/uL (0.2-0.9); Monocytes % 5.8 %; Neutrophils # 3.24 10^3/uL (1.8-7.7); Neutrophils % 54.8 %; Nucleated Red Blood Cells % 0 %; Platelet Count 245 10^3/cmm (130-400); Red Blood Count 4.57 10^6/uL (4.1-5.3); Red Cell Distribution Width 13.5 % (12.1-15.1); White Blood Count 5.9 10^3/uL (4.0-10.0)
[2020-02-20 15:03] LABS: Alanine Aminotransferase 27 U/L (0-33); Albumin Level 4.1 g/dL (3.5-5.2); Alkaline Phosphatase 50 IU/L (35-105); Anion Gap 14.9 (5-19); Aspartate Amino Transferase 42 U/L (0-32); Blood Urea Nitrogen 11 mg/dL (8-23); Calcium 9.6 mg/dL (8.5-10.5); Carbon Dioxide 25 mmol/L (22-29); Chloride 101 mmol/L (98-107); Globulin 3.1 g/dL (1.3-4.6); Glucose 114 mg/dL (65-115); Osmolality Calculated 281 mOsm/kg (285-295); Potassium 3.9 mmol/L (3.5-5.1); Sodium 137 mmol/L (136-145); Total Bilirubin 0.4 mg/dL (0.15-1.2); Total Protein 7.2 g/dL (6.6-8.7)
[2020-02-20 16:26] LABS: Ferritin 157 ng/mL (15-150); Iron 64 ug/dL (37-145); Percent Saturation 21.9 % (20-50); Total Iron Binding Capacity 291 mcg/dl; Unsaturated Iron Binding 227 ug/dL (112-347)
--- NOTE | 2020-02-24 12:24 | ONC FU_ITS ---
Dr. Velez Patient Follow-Up Note Patient: Kimberli Everett Unit #: [id number]: 1940 Dicatated By: Jason Velez M.D.Date of Visit:Feb 20, 2020 Onc Med Follow-up/Prog Note Chief Complaint: Hemochromatosis. History of Present Illness: This is a 79 year-old woman with hemochromatosis/iron overload. She had seen Dr. Carolina initially in February 2014. At that time she was complaining of right upper quadrant abdominal pain, and she complained of pain in her right hip and right leg. She also complained of severe weakness/fatigue. Her lab studies at that time included an unremarkable CBC showing hemoglobin 14.4 g, white blood cell count 5500, and platelet count 198,000. Comprehensive metabolic profile showed mildly elevated SGOT and SGPT levels with normal bilirubin and alkaline phosphatase. Her serum iron and transferrin saturation were at the upper limit of normal at 149 mcg/dL and 54% respectively. Her serum ferritin was significantly elevated at 2065 ng/mL. Viral hepatitis profile was negative. 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 It was negative for the H63D and the S65C mutations. CT abdomen/pelvis on 03/16/14 showed no acute abnormality. The liver was noted to be diffusely decreased in attenuation, consistent with fatty infiltration. The report did not mention whether that had changed at all compared to the previous study in 2009. Liver biopsy on 03/21/2014 showed moderate iron deposition (2+/4+) consistent with hemochromatosis. There was noted to be macrovesicular fatty change but with no significant active inflammation. She started a phlebotomy program, initially with a half unit phlebotomy and subsequently with full phlebotomies weekly. She initially felt somewhat weaker and lightheaded following the phlebotomies. A repeat ferritin level from this laboratory on 04/09/2014 was down to 1233 ng/mL. She then continued the phlebotomies, but just a half unit at a time. As of June 2014 the ferritin had declined just slightly, to 1120 ng/mL. However, on a repeat study in September 2014 it had declined significantly, to 99.9 ng/mL. Her transferrin saturation at that point was low at 7.9%, and the phlebotomies were stopped. I had seen her for a scheduled follow-up visit on 06/16/2017. At that time her ferritin level had increased 149 ng/mL, and I did have her restart 1/2 unit phlebotomies monthly. As of November 2017 the ferritin was back down to 35.9 ng/mL with transferrin saturation 14.2%, and at that point I did stop her phlebotomies. Her medical history is otherwise significant for degenerative arthritis/degenerative disease of the spine and GERD. In 2009 she had received 2 doses of iron sucrose IV. She had a low serum iron at that time, but she was not actually anemic. She has had no other prior medical illnesses. In November 2014 she fell and sustained fractures to the right ankle, including a distal fibula fracture and a posterior shelf tibial fracture. She required open reduction/fixation. The procedure was complicated by a fairly extensive deep vein thrombosis of the right leg in June 2015. She has remained on anticoagulation with warfarin. In August 2019 she suffered a traumatic fracture of the right radial head. She underwent open reduction with right radial head replacement/lateral ligament repair. She is a nonsmoker, and she does not drink alcohol. INTERIM HISTORY: She is seen for a scheduled visit. She has been feeling pretty good generally, though she does have some fatigue. She just attributes it to being lazy. ECOG score is 1. She says her appetite is not real good. Her weight is down 8 pounds. She does not have fever or night sweats. He says she has been having problems with fluid behind the left eardrum and she also developed a knot behind her left ear. However, that has been getting better since she had a bad tooth pulled. Her breathing has been okay. She does not complain of cough, and she has not been having chest pain. She has no GI complaints. She was treated for bladder infection and she thinks she also may have had a yeast infection, but that seems to be better now. She has some pain in the lower back area. She has some pain in her right arm and wrist. She does not complain of headache. She sometimes gets dizzy when she is lying down. She occasionally has numbness in her arms/hands. Medications: Acetaminophen ER 1 Tablet (of 650 mg) Tablet, controlled release Oral b.i.d. PRN, ALPRAZolam 1 (0.25 mg) Tablet Oral daily PRN, Claritin-D 12 Hour 1 Tablet (of 5-120 mg) Tablet SR 12 HR Oral daily, Coumadin 1 Tablet (of 5 mg) Oral daily, Meloxicam 1 Tablet (of 15 mg) Oral daily, Omeprazole 1 (20 mg) Capsule Delayed Release Oral daily, Probiotic 1 Capsule Oral daily Allergies: No Known Allergies. Review of Systems: Constitutional - Her energy is low. She has some activity limitations from back pain. Her appetite is poor and she reports alteration in taste. Her weight is down 8 pounds from last visit. No fever, night sweats, or hot flashes. ECOG score is 1, ENMT - She has sinus congestion/drainage. Her mouth is sore. No sore throat or difficulty swallowing, Hematologic/Lymphatic - No abnormal bruising or bleeding, Respiratory - No shortness of breath. No cough. No pleuritic pain or hemoptysis, Cardiovascular - No angina pain. No palpitations, Gastrointestinal - No nausea or vomiting. Her heartburn is adequately managed with Omeprazole. No diarrhea or constipation. No blood in the stool or black stools. She is taking a daily Probiotic, Genitourinary (F) - No dysuria or hematuria. No urinary frequency. No urgency or incontinence. She believes she recently had a yeast infection from being on long-term antibiotics, Musculoskeletal - She has a lot of pain in her lower back, Integumentary - No skin complications, Neurologic - No headache. She was having dizziness but it has improved. No numbness or tingling. No other focal neurologic symptoms, Psychiatric - No anxiety or depression. She has occasional difficulty sleeping. Vital Signs: Performed on Feb 20, 2020 15:51 Height - 66.00 in Weight - 155.6 lbs (LOW) BSA - 1.80 sq.m BMI - 25.11 Temperature - 98.3 F (LOW) Pulse - 88 /min Respiration - 18 /min BP - 139/68 mm(hg) O2 Sat - 96 % Pain - 0 Physical Examination: Constitutional - She looks pretty good generally, Eyes - Sclerae nonicteric. Conjunctivae clear, ENMT - There are no other lesions noted in the oral cavity, Hematologic/Lymphatic - No cervical, clavicular, or axillary adenopathy, Respiratory - Lungs are clear with good air movement bilaterally, Cardiovascular - Heart rhythm is regular. There is a II/ systolic murmur. There is no gallop or rub noted, Abdomen - Soft. Liver and spleen are not enlarged. There is no abdominal mass or ascites noted and there is no inguinal adenopathy, Extremities - No edema. Dorsalis pedis pulses are palpable bilaterally, Neurologic - No focal neurologic deficits noted. Lab/Imaging: CBC shows hemoglobin 13.7 g, white blood cell count 5900, and platelet count 245,000. Comprehensive metabolic profile is unremarkable except for slightly elevated SGOT at 42/32 U/L. The serum iron studies show transferrin saturation in normal range at 21.9%. The ferritin has increased to 157 ng/mL. Impression: 1. 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 Based on the ferritin level and the results of the liver biopsy, she did appear to have associated iron overload. She had complained of right upper quadrant abdominal pain, and she had mildly elevated SGOT/SGPT levels along with CT evidence of fatty infiltration in the liver. The fatty infiltration also was confirmed by liver biopsy, but the clinical significance of that finding has been uncertain. 2. She started a phlebotomy program for the hemochromatosis in March 2014. She was able to tolerate only half unit phlebotomies. Initially she was showing just a very gradual decline in her ferritin level, but it then dropped rather precipitously, and by September 2014 she actually appeared to be iron deficient. 3. She has since then been monitored on observation. As of her followup visit on 06/19/2015 her transferrin saturation and ferritin levels were in target range. 4. In June 2015 she had reported persistent pain and swelling in the right leg following open reduction/fixation for a traumatic fracture in November 2014. A venous Doppler did show evidence of partially occlusive deep vein thrombosis of the right leg. She was then started on anticoagulation with rivaroxaban. In November 2015 her anticoagulation was transitioned to Lovenox and subsequently to warfarin. 5. Her medical illnesses otherwise have been limited to GERD and degenerative arthritis. As of March 2016 her serum iron studies and ferritin remained in target range. She was then followed on observation/expectant management for the hemochromatosis. She continued anticoagulation with warfarin. As of her follow-up visit in June 2017 her ferritin at increased slightly, and at that point she restarted 1/2 unit phlebotomies monthly. As of November 2017 her transferrin saturation and ferritin levels were back down and she then stopped phlebotomies. During follow-up, the transferrin saturation and ferritin had basically remained stable. In August 2019 she suffered a traumatic fracture of the right radial head. She underwent open reduction with right radial head replacement/lateral ligament repair. She had good recovery from the surgery. As of her follow-up visit in November 2019 her transferrin saturation and ferritin were slightly above target range, and those have continued to increase. Plan: She will be phlebotomized now and I will continue phlebotomies every 3 months until her transferrin saturation and ferritin are back in target range. I will just plan to see her again in 1 year. Signed By: Jason Velez M.D. <<Signature on File>>
== END 2020-02-20 14:26 | disposition home or self-care (01) ==
LOC: LAB 14:28 → ONCMED 16:03
PROVIDERS: PCP Internal Medicine; Visit Provider Internal Medicine Medical Oncology
DX: E83.110 Hereditary hemochromatosis (principal); I82.401 Acute embolism and thrombosis of unspecified deep veins of right lower extremity; Z79.01 Long term (current) use of anticoagulants
CPT/HCPCS: 80053; 82728; 83540; 83550; 85025; 99214

== ENCOUNTER 2020-02-22 09:24 | Outpatient (CLI) | payer MEDICARE, OTHER, SELFPAY | END 2020-02-22 09:25 | disposition home or self-care (01) | LOC: ONCMED 09:27 | PROVIDERS: PCP Internal Medicine; Visit Provider Internal Medicine Medical Oncology | DX: E83.110 Hereditary hemochromatosis (principal) | CPT/HCPCS: 99195 ==

== ENCOUNTER 2020-05-23 09:29 | Outpatient (CLI) | payer MEDICARE, OTHER, SELFPAY ==
[2020-05-23 10:12] LABS: Basophils # 0.1 10^3/uL (0.0-0.1); Basophils % 1.2 %; Eosinophils # 0.1 10^3/uL (0.0-0.8); Eosinophils % 1.2 %; Hematocrit 42.7 % (37.0-47.0); Hemoglobin 13.3 g/dL (11.5-15.3); Lymphocytes # 1.5 10^3/uL (0.8-4.8); Lymphocytes % 34.6 %; Mean Corpuscular HGB Conc 31.1 g/dL (30.0-36.0); Mean Corpuscular Hemoglobin 28.7 pg (28.0-34.0); Mean Corpuscular Volume 92.2 fL (81-99); Mean Platelet Volume 10.8 fL (7.4-10.4); Monocytes # 0.3 10^3/uL (0.2-0.9); Monocytes % 7.1 %; Neutrophils # 2.37 10^3/uL (1.8-7.7); Neutrophils % 55.7 %; Nucleated Red Blood Cells % 0 %; Platelet Count 232 10^3/cmm (130-400); Red Blood Count 4.63 10^6/uL (4.1-5.3); Red Cell Distribution Width 13.4 % (12.1-15.1); White Blood Count 4.3 10^3/uL (4.0-10.0)
[2020-05-23 10:35] LABS: Ferritin 62 ng/mL (15-150); Iron 93 ug/dL (37-145); Percent Saturation 27.1 % (20-50); Total Iron Binding Capacity 342 mcg/dl; Unsaturated Iron Binding 249 ug/dL (112-347)
== END 2020-05-23 09:30 | disposition home or self-care (01) ==
PROVIDERS: PCP Internal Medicine; Visit Provider Internal Medicine Medical Oncology
DX: E83.110 Hereditary hemochromatosis (principal); R79.0 Abnormal level of blood mineral
CPT/HCPCS: 36415; 82728; 83540; 83550; 85025

== ENCOUNTER 2020-08-22 09:24 | Outpatient (CLI) | payer MEDICARE, BC, SELFPAY ==
[2020-08-22 10:05] LABS: Basophils % 0.8 %; Eosinophils # 0.1 10^3/uL (0.0-0.8); Eosinophils % 1.2 %; Hematocrit 43.9 % (37.0-47.0); Lymphocytes # 1.8 10^3/uL (0.8-4.8); Lymphocytes % 37.6 %; Mean Corpuscular HGB Conc 31.9 g/dL (30.0-36.0); Mean Corpuscular Volume 91.1 fL (81-99); Mean Platelet Volume 10.9 fL (7.4-10.4); Monocytes # 0.3 10^3/uL (0.2-0.9); Neutrophils # 2.57 10^3/uL (1.8-7.7); Neutrophils % 53.2 %; Nucleated Red Blood Cells % 0 %; Platelet Count 246 10^3/cmm (130-400); Red Blood Count 4.82 10^6/uL (4.1-5.3); Red Cell Distribution Width 14.2 % (12.1-15.1); White Blood Count 4.8 10^3/uL (4.0-10.0)
[2020-08-22 10:24] LABS: Ferritin 80 ng/mL (15-150); Iron 95 ug/dL (37-145); Percent Saturation 26.7 % (20-50); Total Iron Binding Capacity 355 mcg/dl; Unsaturated Iron Binding 260 ug/dL (112-347)
== END 2020-08-22 09:25 | disposition home or self-care (01) ==
LOC: ONCMED 09:27
PROVIDERS: Internal Medicine Medical Oncology; PCP Internal Medicine; Visit Provider Internal Medicine Hematology & Oncology
DX: D50.9 Iron deficiency anemia, unspecified (principal); Z79.01 Long term (current) use of anticoagulants
CPT/HCPCS: 36415; 82728; 83540; 83550; 85025; 99195

== ENCOUNTER 2021-03-25 14:55 | Outpatient (CLI) | payer MEDICARE, BC, SELFPAY ==
--- NOTE | 2021-03-25 15:03 | XR_ITS ---
WS: [id number] DEXA (DUAL ENERGY X-RAY ABSORPTIOMETRY) Bone mineral density was performed using a [employer] machine. HISTORY: OSTEOPOROSIS COMPARISON: 02/18/2017 Lumbar spine BMD (L1-L4): 0.809 g/cm2 T score: -3.1 Z score: -1.5 Total hip BMD: Left: 0.856 g/cm2. T score: -1.2 Z score: 0.5 Right: 0.847 g/cm2. T score: -1.3 Z score: 0.5 10 year probability of a major osteoporotic fracture is 40%. Compared to the prior study from 02/18/2017. Lumbar spine bone mineral density has decreased by 7.4%. Bilateral hips bone mineral density has decreased by 4.6%. XR/XR DEXA axial skeleton* 56059 IMPRESSION: OSTEOPOROSIS based upon the WHO classification for females. Significant decreas e in bone mineral density within both the lumbar spine and hips since the prior study.
== END 2021-03-25 14:56 | disposition home or self-care (01) ==
PROVIDERS: PCP Internal Medicine; Visit Provider Internal Medicine
DX: M81.0 Age-related osteoporosis without current pathological fracture (principal)
CPT/HCPCS: 77080

== ENCOUNTER 2021-03-27 12:00 | Outpatient (CLI) | payer MEDICARE, BC, SELFPAY ==
[2021-03-27 12:37] LABS: Basophils # 0.1 10^3/uL (0.0-0.1); Basophils % 1.2 %; Eosinophils # 0.1 10^3/uL (0.0-0.8); Eosinophils % 1.4 %; Hemoglobin 13.9 g/dL (11.5-15.3); Lymphocytes % 39.8 %; Mean Corpuscular HGB Conc 31.6 g/dL (30.0-36.0); Mean Corpuscular Hemoglobin 28.6 pg (28.0-34.0); Mean Corpuscular Volume 90.5 fl (81-99); Monocytes # 0.3 10^3/uL (0.2-0.9); Monocytes % 6.7 %; Neutrophils % 50.7 %; Nucleated Red Blood Cells % 0 %; Platelet Count 242 10^3/cmm (130-400); Red Blood Count 4.86 10^6/uL (4.1-5.3); Red Cell Distribution Width 14.6 % (12.1-15.1); White Blood Count 4.9 10^3/uL (4.0-10.0)
[2021-03-27 13:04] LABS: Alanine Aminotransferase 18 U/L (0-33); Albumin Level 4.3 g/dL (3.5-5.2); Alkaline Phosphatase 54 IU/L (35-105); Anion Gap 13.2 (5-19); Aspartate Amino Transferase 20 U/L (0-32); Blood Urea Nitrogen 15 mg/dL (8-23); Calcium 9.9 mg/dL (8.5-10.5); Carbon Dioxide 28 mmol/L (22-29); Chloride 102 mmol/L (98-107); Ferritin 45 ng/mL (15-150); Globulin 2.8 g/dL (1.3-4.6); Glucose 116 mg/dL (65-115); Iron 56 ug/dL (37-145); Osmolality Calculated 290 mOsm/kg (285-295); Percent Saturation 14.3 % (20-50); Potassium 4.2 mmol/L (3.5-5.1); Sodium 139 mmol/L (136-145); Total Bilirubin 0.2 mg/dL (0.15-1.2); Total Iron Binding Capacity 389 mcg/dl; Total Protein 7.1 g/dL (6.6-8.7); Unsaturated Iron Binding 333 ug/dL (112-347)
[2021-03-27 14:25] LABS: Vitamin B12 152 pg/mL (232-1245)
--- NOTE | 2021-03-27 19:15 | ONC FU_ITS ---
Dr. Velez Patient Follow-Up Note Patient: Kimberli Everett Unit #: [id number]: [id number] Dicatated By: Jason Velez M.D.Date of Visit:Mar 27, 2021 Onc Med Follow-up/Prog Note Chief Complaint: Hemochromatosis. History of Present Illness: This is a 80 year-old woman with hemochromatosis/iron overload. She had seen Dr. Carolina initially in February 2014. At that time she was complaining of right upper quadrant abdominal pain, and she complained of pain in her right hip and right leg. She also complained of severe weakness/fatigue. Her lab studies at that time included an unremarkable CBC showing hemoglobin 14.4 g, white blood cell count 5500, and platelet count 198,000. Comprehensive metabolic profile showed mildly elevated SGOT and SGPT levels with normal bilirubin and alkaline phosphatase. Her serum iron and transferrin saturation were at the upper limit of normal at 149 mcg/dL and 54% respectively. Her serum ferritin was significantly elevated at 2065 ng/mL. Viral hepatitis profile was negative. 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 It was negative for the H63D and the S65C mutations. CT abdomen/pelvis on 03/16/14 showed no acute abnormality. The liver was noted to be diffusely decreased in attenuation, consistent with fatty infiltration. The report did not mention whether that had changed at all compared to the previous study in 2009. Liver biopsy on 03/21/2014 showed moderate iron deposition (2+/4+) consistent with hemochromatosis. There was noted to be macrovesicular fatty change but with no significant active inflammation. She started a phlebotomy program, initially with a half unit phlebotomy and subsequently with full phlebotomies weekly. She initially felt somewhat weaker and lightheaded following the phlebotomies. A repeat ferritin level from this laboratory on 04/09/2014 was down to 1233 ng/mL. She then continued the phlebotomies, but just a half unit at a time. As of June 2014 the ferritin had declined just slightly, to 1120 ng/mL. However, on a repeat study in September 2014 it had declined significantly, to 99.9 ng/mL. Her transferrin saturation at that point was low at 7.9%, and the phlebotomies were stopped. I had seen her for a scheduled follow-up visit on 06/16/2017. At that time her ferritin level had increased 149 ng/mL, and I did have her restart 1/2 unit phlebotomies monthly. As of November 2017 the ferritin was back down to 35.9 ng/mL with transferrin saturation 14.2%, and at that point I did stop her phlebotomies. Her medical history is otherwise significant for degenerative arthritis/degenerative disease of the spine and GERD. She also has been found to have osteoporosis. In November 2014 she fell and sustained fractures to the right ankle, including a distal fibula fracture and a posterior shelf tibial fracture. She required open reduction/fixation. The procedure was complicated by a fairly extensive deep vein thrombosis of the right leg in June 2015. She has remained on anticoagulation with warfarin. In August 2019 she suffered a traumatic fracture of the right radial head. She underwent open reduction with right radial head replacement/lateral ligament repair. She is a nonsmoker, and she does not drink alcohol. INTERIM HISTORY: She is seen for a scheduled visit. She has not been feeling very good generally. Her main complaint is that she has been having pain in the upper and lower abdomen on the right side and also in the right side of her back. Her recent evaluation has included a right upper quadrant ultrasound and an EGD. She has fatigue, but she has been able to continue most of her normal activities. Her appetite has been okay. She does not have fever or night sweats. She had cataract excisions in January and in February. She does have some sinus drainage. She has not had shortness of breath or cough, and she does not complain of chest pain. She has not been having nausea. Her acid reflux is adequately managed with omeprazole. Her bowels fluctuate between diarrhea and constipation. Bladder function remains adequate, though she sometimes has burning with urination. She sometimes has headache. She has ongoing problems with dizziness/dysequilibrium, particularly when she gets up from a lying position. She has numbness in her right foot she also has some numbness in the ulnar distribution of the left hand. Medications: Acetaminophen ER 1 Tablet (of 650 mg) Tablet, controlled release Oral b.i.d. PRN, ALPRAZolam 1 (0.25 mg) Tablet Oral daily PRN, Coumadin 1 Tablet (of 5 mg) Oral daily, Meloxicam 1 Tablet (of 15 mg) Oral daily, Omeprazole 1 (20 mg) Capsule Delayed Release Oral daily, Probiotic 1 Capsule Oral daily Allergies: No Known Allergies. Vital Signs: Performed on Mar 27, 2021 13:17 Height - 66.00 in Weight - 160.8 lbs (HIGH) BSA - 1.82 sq.m BMI - 25.95 Temperature - 96.7 F (LOW) Pulse - 84 /min Respiration - 18 /min BP - 111/74 mm(hg) O2 Sat - 97 % Pain - 6 Fatigue - 2 Physical Examination: Constitutional - She looks pretty good generally, Eyes - Sclerae nonicteric. Conjunctivae clear, ENMT - There are no other lesions noted in the oral cavity, Hematologic/Lymphatic - No cervical, clavicular, or axillary adenopathy, Respiratory - Lungs are clear with good air movement bilaterally, Cardiovascular - Heart rhythm is regular. There is a II/ systolic murmur. There is no gallop or rub noted, Abdomen - Soft. There is mild tenderness in the upper abdomen, particularly right upper quadrant area. Liver and spleen are not enlarged. There is no abdominal mass or ascites noted. There is a a palpable nodule in the right inguinal area, Extremities - There is mild swelling of the right leg, which is chronic. Pedal pulses are palpable bilaterally, Neurologic - No focal neurologic deficits noted. Lab/Imaging: Test performed on Mar 27, 2021 12:30 Ferritin 45 ng/mL Iron 56 mcg/dL Sodium 139 mmol/L Iron Binding Capacity (TIBC) 389 mcg/dl Potassium 4.2 mmol/L % Iron Saturation 14.3 % Chloride 102 mmol/L CO2 28 mmol/L UIBC 333 mcg/dL Anion Gap 13.2 BUN 15 mg/dL Creatinine 0.8 mg/dL Cr Clearance (Est) 66.73 mL/min Glucose 116 mg/dL Osmolality - Calculated 290 mOsm/kg Calcium 9.9 mg/dL Protein, Total 7.1 g/dL Albumin 4.3 g/dL Globulin 2.8 g/dL Bilirubin, Total 0.2 mg/dL ALT (SGPT) 18 U/L AST (SGOT) 20 U/L Alkaline Phosphatase 54 IU/L WBC 4.9 10 3/uL RBC 4.86 10 6/uL HGB 13.9 g/dL HCT 44.0 % MCV 90.5 fl MCH 28.6 pg MCHC 31.6 g/dL RDW 14.6 % Platelet Count 242 10 3/cmm MPV 11.0 fL Neutrophils 2.50 10 3/uL Lymphocytes 2.0 10 3/uL Monocytes 0.3 10 3/uL Eosinophils 0.1 10 3/uL Basophils 0.1 10 3/uL Neutrophil % 50.7 % Lymphocyte % 39.8 % Monocyte % 6.7 % Eosinophil % 1.4 % Basophils % 1.2 % NRBC % 0 % Problem List: 1. Hemochromatosis. 2. History of right lower extremity deep vein thrombosis in 2015. 3. GERD. 4. Degenerative arthritis. 5. Osteoporosis. Problems Addressed with this Encounter and Plan: 1. Patient with hemochromatosis, confirmed to have heterozygosity for the C282Y mutation. Based on the ferritin level and the results of the liver biopsy, she did appear to have associated iron overload. She had complained of right upper quadrant abdominal pain, and she had mildly elevated SGOT/SGPT levels along with CT evidence of fatty infiltration in the liver. The fatty infiltration also was confirmed by liver biopsy. She began a phlebotomy program for the hemochromatosis in March 2014. She was able to tolerate only half unit phlebotomies. Initially she was showing just a very gradual decline in her ferritin level, but it then dropped rather precipitously, and by September 2014 she actually appeared to be iron deficient. During subsequent follow-up she had phlebotomies again for 6 months beginning in June 2017 and she has started phlebotomies again in November 2019 with her transferrin saturation and ferritin level slightly above target range. She has had a good response with her transferrin saturation now low at 14% and ferritin in target range at 45 ng/mL. As such, she will now remain on expectant management. I will tentatively plan to recheck lab studies in 6 months. In the meantime, she is having significant fatigue and dysequilibrium, I am also going to check a B12 level. She will have further evaluation as indicated. 2. She has ongoing complaints of pain in the right side of the abdomen and in the right side of her back. A specific cause has not been determined, but this point I do want to repeat a CT abdomen/pelvis. She will have further evaluation as indicated. Signed By: Jason Velez M.D. <<Signature on File>>
== END 2021-03-27 12:01 | disposition home or self-care (01) ==
LOC: ONCMED 12:04
PROVIDERS: PCP Internal Medicine; Visit Provider Internal Medicine Medical Oncology
DX: E83.110 Hereditary hemochromatosis (principal); K21.9 Gastro-esophageal reflux disease without esophagitis; M19.90 Unspecified osteoarthritis, unspecified site; M81.0 Age-related osteoporosis without current pathological fracture; Z86.718 Personal history of other venous thrombosis and embolism; Z79.899 Other long term (current) drug therapy
CPT/HCPCS: 36415; 80053; 82607; 82728; 83540; 83550; 85025; 99214

== ENCOUNTER 2021-04-03 06:40 | Outpatient (CLI) | payer MEDICARE, BC, SELFPAY ==
[2021-04-03] MEDS: cyanocobalamin 1,000 mcg/mL SDV 1000 MCG IM (14:45)
[2021-04-03 15:28] LABS: Calcium 9.1 mg/dL (8.5-10.5)
[2021-04-03 15:33] LABS: Thyroid Stimulating Hormone 1.39 uIU/mL (0.27-4.20)
[2021-04-03 15:35] LABS: Parathyroid Hormone 86.2 pg/mL (15-65)
[2021-04-03 17:34] LABS: Free T4 Free Thyroxine 1.21 ng/dL (0.82-1.77)
[2021-04-08 00:52] LABS: Immunoglobulin A 289 mg/dL (70-320)
[2021-04-10 23:51] LABS: Gliadin Ab.IgA <1.0 U/mL; Gliadin Ab.IgG <1.0 U/mL; Tissue Transglutaminase IgA Ab <1.0 U/mL; Tissue transglutaminase Ab.IgG <1.0 U/mL
== END 2021-04-03 06:41 | disposition home or self-care (01) ==
LOC: ONCMED 06:40
PROVIDERS: Internal Medicine; PCP Internal Medicine; Visit Provider Internal Medicine Medical Oncology
DX: E83.110 Hereditary hemochromatosis (principal); K21.9 Gastro-esophageal reflux disease without esophagitis; D51.9 Vitamin B12 deficiency anemia, unspecified; M81.0 Age-related osteoporosis without current pathological fracture; E03.9 Hypothyroidism, unspecified; Z79.899 Other long term (current) drug therapy
CPT/HCPCS: 82310; 82784; 83516; 83970; 84439; 84443; 96372; J3420

== ENCOUNTER 2021-04-03 13:28 | Outpatient (CLI) | payer MEDICARE, BC, SELFPAY ==
--- NOTE | 2021-04-03 | CT_ITS ---
WS: [id number] CT ABDOMEN PELVIS TECHNIQUE: Contrast-enhanced CT of the abdomen and pelvis with coronal and sagittal reformatted image s. CLINICAL INFORMATION: RUQ AND RLQ PAIN COMPARISON: CT 8 18,019 DLP: 1095.[address] scans at [facility] use at least one of these dose optimization techniques: automated e xposure control; mA and/or kV adjustment per patient size (includes targeted exams where dose is matc hed to clinical indication); or iterative reconstruction. FINDINGS: Lung bases are well aerated. Diffuse fatty infiltration of the liver. Cholecystectomy clips. Normal p ortal vein and splenic vein. Normal spleen. Small esophageal hiatal hernia. Mild fatty atrophy of the pancreas. Adrenal glands are normal. Normal renal parenchymal enhancement. No hydronephrosis in eith er kidney. Normal caliber abdominal aorta. Aortic Calcification. No aneurysm.Sigmoid diverticulosis. No evidence of acute diverticulitis. No evidence of high-grade small or large bowel obstruction. Normal appendix in the right lower quadrant. No abdominal or pelvic lymphadenopathy. No inguinal lymphadenopathy. Mild chronic anterior wedging at L1 and L2. Mild disc bulging L4-5. Mild nonspecific nodular thickening involving the distal sigmoid and rectum with mild luminal narrowi ng. Recommend further evaluation with sigmoidoscopy CT/CT abdomen pelvis w con* [id number] IMPRESSION: 1. Sigmoid diverticulosis. No evidence of acute diverticulitis. 2. Mild nodular wall thickening involving the distal sigmoid colon and rectum with mild luminal narrowing is nonspecific and recommend further evaluation wit h sigmoidoscopy. 3. Diffuse fatty infiltration of the liver. 4. Prior cholecystectomy. 5. Small esophageal hiatal hernia. 6. Normal renal parenchymal enhancement. No hydronephrosis. 7. No adenopathy in the abdomen or pelvis. 8. No other significant findings.
[2021-04-03] MEDS: iohexol 300 mg/mL 100 mL Btl IV (15:24)
== END 2021-04-03 13:29 | disposition home or self-care (01) ==
PROVIDERS: PCP Internal Medicine; Visit Provider Internal Medicine Medical Oncology
DX: R10.84 Generalized abdominal pain (principal); R10.11 Right upper quadrant pain; R10.31 Right lower quadrant pain; K57.30 Diverticulosis of large intestine without perforation or abscess without bleeding; K76.0 Fatty (change of) liver, not elsewhere classified; Z90.49 Acquired absence of other specified parts of digestive tract; K44.9 Diaphragmatic hernia without obstruction or gangrene; M81.0 Age-related osteoporosis without current pathological fracture
CPT/HCPCS: 74177; 99204; Q9967

== ENCOUNTER 2021-04-10 06:55 | Outpatient (CLI) | payer MEDICARE, BC, SELFPAY ==
[2021-04-10] MEDS: cyanocobalamin 1,000 mcg/mL SDV 1000 MCG SUBCUT (13:50)
== END 2021-04-10 06:56 | disposition home or self-care (01) ==
LOC: ONCMED 06:55
PROVIDERS: PCP Internal Medicine; Visit Provider Internal Medicine Medical Oncology
DX: E83.110 Hereditary hemochromatosis (principal); D51.9 Vitamin B12 deficiency anemia, unspecified
CPT/HCPCS: 96372; J3420

== ENCOUNTER 2021-04-17 06:40 | Outpatient (CLI) | payer MEDICARE, BC, SELFPAY ==
[2021-04-17] MEDS: cyanocobalamin 1,000 mcg/mL SDV 1000 MCG SUBCUT (14:36)
== END 2021-04-17 06:41 | disposition home or self-care (01) ==
LOC: ONCMED 06:40
PROVIDERS: PCP Internal Medicine; Visit Provider Internal Medicine Medical Oncology
DX: E83.110 Hereditary hemochromatosis (principal); D51.9 Vitamin B12 deficiency anemia, unspecified; Z79.899 Other long term (current) drug therapy
CPT/HCPCS: 96372; J3420

== ENCOUNTER 2021-04-24 06:36 | Outpatient (CLI) | payer MEDICARE, BC, SELFPAY ==
[2021-04-24 08:30] LABS: Basophils # 0.1 10^3/uL (0.0-0.1); Basophils % 1.4 %; Eosinophils # 0.1 10^3/uL (0.0-0.8); Eosinophils % 1.2 %; Hematocrit 42.6 % (37.0-47.0); Hemoglobin 13.8 g/dL (11.5-15.3); Lymphocytes # 1.6 10^3/uL (0.8-4.8); Lymphocytes % 36.6 %; Mean Corpuscular HGB Conc 32.4 g/dL (30.0-36.0); Mean Corpuscular Hemoglobin 29.6 pg (28.0-34.0); Mean Corpuscular Volume 91.4 fl (81-99); Mean Platelet Volume 10.7 fL (7.4-10.4); Monocytes # 0.3 10^3/uL (0.2-0.9); Monocytes % 6.7 %; Neutrophils # 2.33 10^3/uL (1.8-7.7); Neutrophils % 53.9 %; Nucleated Red Blood Cells % 0 %; Platelet Count 252 10^3/cmm (130-400); Red Blood Count 4.66 10^6/uL (4.1-5.3); Red Cell Distribution Width 14.5 % (12.1-15.1); White Blood Count 4.3 10^3/uL (4.0-10.0)
[2021-04-24] MEDS: cyanocobalamin 1,000 mcg/mL SDV 1000 MCG SUBCUT (08:30)
[2021-04-24 08:51] LABS: Ferritin 71 ng/mL (15-150); Iron 48 ug/dL (37-145); Percent Saturation 13.2 % (20-50); Total Iron Binding Capacity 363 mcg/dl; Unsaturated Iron Binding 315 ug/dL (112-347)
--- NOTE | 2021-04-27 13:48 | ONC FU_ITS ---
Dr. Velez Patient Follow-Up Note Patient: Kimberli Everett Unit #: [id number]: 1940 Dicatated By: Jason Velez M.D.Date of Visit:Apr 24, 2021 Onc Med Follow-up/Prog Note Chief Complaint: Hemochromatosis. History of Present Illness: This is a 80 year-old woman with hemochromatosis/iron overload. She had seen Dr. Carolina initially in February 2014. At that time she was complaining of right upper quadrant abdominal pain, and she complained of pain in her right hip and right leg. She also complained of severe weakness/fatigue. Her lab studies at that time included an unremarkable CBC showing hemoglobin 14.4 g, white blood cell count 5500, and platelet count 198,000. Comprehensive metabolic profile showed mildly elevated SGOT and SGPT levels with normal bilirubin and alkaline phosphatase. Her serum iron and transferrin saturation were at the upper limit of normal at 149 mcg/dL and 54% respectively. Her serum ferritin was significantly elevated at 2065 ng/mL. Viral hepatitis profile was negative. 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 It was negative for the H63D and the S65C mutations. CT abdomen/pelvis on 03/16/14 showed no acute abnormality. The liver was noted to be diffusely decreased in attenuation, consistent with fatty infiltration. The report did not mention whether that had changed at all compared to the previous study in 2009. Liver biopsy on 03/21/2014 showed moderate iron deposition (2+/4+) consistent with hemochromatosis. There was noted to be macrovesicular fatty change but with no significant active inflammation. She started a phlebotomy program, initially with a half unit phlebotomy and subsequently with full phlebotomies weekly. She initially felt somewhat weaker and lightheaded following the phlebotomies. A repeat ferritin level from this laboratory on 04/09/2014 was down to 1233 ng/mL. She then continued the phlebotomies, but just a half unit at a time. As of June 2014 the ferritin had declined just slightly, to 1120 ng/mL. However, on a repeat study in September 2014 it had declined significantly, to 99.9 ng/mL. Her transferrin saturation at that point was low at 7.9%, and the phlebotomies were stopped. I had seen her for a scheduled follow-up visit on 06/16/2017. At that time her ferritin level had increased 149 ng/mL, and I did have her restart 1/2 unit phlebotomies monthly. As of November 2017 the ferritin was back down to 35.9 ng/mL with transferrin saturation 14.2%, and at that point I did stop her phlebotomies. Her medical history is otherwise significant for degenerative arthritis/degenerative disease of the spine and GERD. She also was found to have osteoporosis. In November 2014 she fell and sustained fractures to the right ankle, including a distal fibula fracture and a posterior shelf tibial fracture. She required open reduction/fixation. The procedure was complicated by a fairly extensive deep vein thrombosis of the right leg in June 2015. She has remained on anticoagulation with warfarin. In August 2019 she suffered a traumatic fracture of the right radial head. She underwent open reduction with right radial head replacement/lateral ligament repair. She is a nonsmoker, and she does not drink alcohol. INTERIM HISTORY: As have her follow-up in March 2021 her iron studies remained in target range with transferrin saturation low at 14.3% and ferritin 45 ng/mL, and she was recommended to continue expectant management for the hemochromatosis. She is seen for an unplanned visit. She has had ongoing complaints of dizziness. Her description suggests at least some component of positional vertigo. When it first started, she did get some benefit with physical therapy. The second time she tried it, and actually made her symptoms worse. Lately she is also complaining of pain on the left side of her head/face. She thinks this may be associated with a bad tooth, and she is scheduled to have that removed in 1 week. She recently changed anticoagulation from warfarin to apixaban. Her energy is been okay, though not great. Her ECOG score is 1. She has good appetite. She has no fever or night sweats. She does not complain of cough, and she has not been having shortness of breath or chest pain. She had a lot of gas when she first started the apixaban, but that seems to be resolving. She has had some diarrhea. She has not been aware of any blood in the stool. She did have an episode of diverticulitis a couple of years ago. She currently has no complaints. She does have some joint pain and recently she has been having pain in the medial aspect of her left foot. She complains that her right leg hurts at night. She has numbness in her right foot. Medications: Acetaminophen ER 1 Tablet (of 650 mg) Tablet, controlled release Oral b.i.d. PRN, ALPRAZolam 1 (0.25 mg) Tablet Oral daily PRN, Eliquis 1 Tablet (of 5 mg) Oral b.i.d., Meloxicam 1 Tablet (of 15 mg) Oral daily, Omeprazole 1 (20 mg) Capsule Delayed Release Oral daily, Probiotic 1 Capsule Oral daily Allergies: No Known Allergies. Vital Signs: Performed on Apr 24, 2021 09:38 Height - 66.00 in Weight - 160.6 lbs (LOW) BSA - 1.82 sq.m BMI - 25.92 Temperature - 97.1 F (LOW) Pulse - 89 /min Respiration - 18 /min BP - 126/78 mm(hg) O2 Sat - 99 % Pain - 0 Fatigue - 3 Physical Examination: Constitutional - She looks pretty good generally, Eyes - Sclerae nonicteric. Conjunctivae clear, ENMT - There are no other lesions noted in the oral cavity, Hematologic/Lymphatic - No cervical, clavicular, or axillary adenopathy, Respiratory - Lungs are clear with good air movement bilaterally, Cardiovascular - Heart rhythm is regular. There is a II/ systolic murmur. There is no gallop or rub noted, Abdomen - Soft. Liver and spleen are not enlarged. There is no abdominal mass or ascites noted. There is a a palpable nodule in the right inguinal area, Extremities - There is mild swelling of the right leg, which is chronic. There is some discoloration of the right great toenail. The foot is cool to touch, but she has a good posterior tibial pulsation, Neurologic - No focal neurologic deficits noted. Lab/Imaging: Test performed on Apr 24, 2021 08:22 Ferritin 71 ng/mL Iron 48 mcg/dL Iron Binding Capacity (TIBC) 363 mcg/dl % Iron Saturation 13.2 % UIBC 315 mcg/dL WBC 4.3 10 3/uL RBC 4.66 10 6/uL HGB 13.8 g/dL HCT 42.6 % MCV 91.4 fl MCH 29.6 pg MCHC 32.4 g/dL RDW 14.5 % Platelet Count 252 10 3/cmm MPV 10.7 fL Neutrophils 2.33 10 3/uL Lymphocytes 1.6 10 3/uL Monocytes 0.3 10 3/uL Eosinophils 0.1 10 3/uL Basophils 0.1 10 3/uL Neutrophil % 53.9 % Lymphocyte % 36.6 % Monocyte % 6.7 % Eosinophil % 1.2 % Basophils % 1.4 % NRBC % 0 % Problem List: 1. Hemochromatosis. 2. History of right lower extremity deep vein thrombosis in 2015. 3. GERD. 4. Degenerative arthritis. 5. Osteoporosis. Problems Addressed with this Encounter and Plan: 1. Patient with hemochromatosis, confirmed to have heterozygosity for the C282Y mutation. Based on the ferritin level and the results of the liver biopsy, she did appear to have associated iron overload. She had complained of right upper quadrant abdominal pain, and she had mildly elevated SGOT/SGPT levels along with CT evidence of fatty infiltration in the liver. The fatty infiltration also was confirmed by liver biopsy. She began a phlebotomy program for the hemochromatosis in March 2014. She was able to tolerate only half unit phlebotomies. Initially she was showing just a very gradual decline in her ferritin level, but it then dropped rather precipitously, and by September 2014 she actually appeared to be iron deficient. During subsequent follow-up she had phlebotomies again for 6 months beginning in June 2017 and she started phlebotomies again in November 2019 with her transferrin saturation and ferritin level slightly above target range. She had a good response. As have her follow-up in March 2021 her iron studies remained in target range with transferrin saturation low at 14.3% and ferritin 45 ng/mL, and she was recommended to continue expectant management for the hemochromatosis. 2. She recently started having pain in the medial aspect of her left foot. She also has developed some discoloration of the right great toenail. I will arrange for referral to a cook fry for both of those issues. 3. She recently changed anticoagulation from warfarin to apixaban 5 mg twice daily. She is scheduled to have dental extraction on Wednesday. She is advised to stop the apixaban as of Wednesday and she can restart on Wednesday provided she is not having any bleeding from the extraction. Signed By: Jason Velez M.D. <<Signature on File>>
== END 2021-04-24 06:37 | disposition home or self-care (01) ==
LOC: ONCMED 06:37
PROVIDERS: PCP Internal Medicine; Visit Provider Internal Medicine Medical Oncology
DX: E83.110 Hereditary hemochromatosis (principal); K21.9 Gastro-esophageal reflux disease without esophagitis; M19.90 Unspecified osteoarthritis, unspecified site; M81.0 Age-related osteoporosis without current pathological fracture; Z86.718 Personal history of other venous thrombosis and embolism; Z79.899 Other long term (current) drug therapy
CPT/HCPCS: 36415; 82728; 83540; 83550; 85025; 96372; 99214; J3420

== ENCOUNTER → 2021-07-24 10:15 | Outpatient (BNVA) | payer MEDICARE, BC, SELFPAY | PROVIDERS: PCP Family Medicine; Visit Provider Family Medicine | DX: Z13.6 Encounter for screening for cardiovascular disorders (principal) | CPT/HCPCS: 80053; 80061 ==

== ENCOUNTER → 2021-08-04 08:37 | Outpatient (BNVA) | payer MEDICARE, BC, SELFPAY | PROVIDERS: PCP Family Medicine; Visit Provider Podiatrist Foot & Ankle Surgery | DX: M25.572 Pain in left ankle and joints of left foot (principal); M25.571 Pain in right ankle and joints of right foot ==

== ENCOUNTER → 2021-09-15 08:07 | Outpatient (BNVA) | payer MEDICARE, BC, SELFPAY | PROVIDERS: PCP Family Medicine; Visit Provider Podiatrist Foot & Ankle Surgery | DX: B35.1 Tinea unguium (principal); M76.822 Posterior tibial tendinitis, left leg; M19.171 Post-traumatic osteoarthritis, right ankle and foot | CPT/HCPCS: 73630; 99213; 99214 ==

== ENCOUNTER 2021-10-07 13:52 | Outpatient (CLI) | payer MEDICARE, BC, SELFPAY | END 2021-10-07 13:53 | disposition home or self-care (01) | LOC: SPT 13:53 | PROVIDERS: PCP Family Medicine; Visit Provider Podiatrist Foot & Ankle Surgery | DX: Z46.89 Encounter for fitting and adjustment of other specified devices (principal); M76.829 Posterior tibial tendinitis, unspecified leg; M19.171 Post-traumatic osteoarthritis, right ankle and foot; M79.673 Pain in unspecified foot | CPT/HCPCS: 97760; L3030 ==

== ENCOUNTER 2021-11-12 13:16 | Oncology outpatient (recurring) (ONCR) | payer MEDICARE, BC, SELFPAY ==
[2021-11-06 13:14] LABS: Basophils % 0.8 %; Eosinophils # 0.1 10^3/uL (0.0-0.8); Eosinophils % 1.3 %; Hematocrit 41.8 % (37.0-47.0); Hemoglobin 13.6 g/dL (11.5-15.3); Lymphocytes # 2.3 10^3/uL (0.8-4.8); Lymphocytes % 48.5 %; Mean Corpuscular HGB Conc 32.5 g/dL (30.0-36.0); Mean Corpuscular Hemoglobin 29.5 pg (28.0-34.0); Mean Corpuscular Volume 90.7 fl (81-99); Monocytes # 0.4 10^3/uL (0.2-0.9); Monocytes % 7.5 %; Neutrophils % 41.7 %; Nucleated Red Blood Cells % 0 %; Platelet Count 216 10^3/cmm (130-400); Red Blood Count 4.61 10^6/uL (4.1-5.3); Red Cell Distribution Width 13.8 % (12.1-15.1); White Blood Count 4.8 10^3/uL (4.0-10.0)
[2021-11-06 13:37] LABS: Alanine Aminotransferase 19 U/L (0-33); Albumin Level 4.3 g/dL (3.5-5.2); Alkaline Phosphatase 52 IU/L (35-105); Anion Gap 14.9 (5-19); Aspartate Amino Transferase 19 U/L (0-32); Blood Urea Nitrogen 11 mg/dL (8-23); Calcium 9.3 mg/dL (8.5-10.5); Carbon Dioxide 27 mmol/L (22-29); Chloride 102 mmol/L (98-107); Ferritin 63 ng/mL (15-150); Globulin 2.7 g/dL (1.3-4.6); Glucose 86 mg/dL (65-115); Iron 61 ug/dL (37-145); Osmolality Calculated 289 mOsm/kg (285-295); Percent Saturation 16.7 % (20-50); Potassium 3.9 mmol/L (3.5-5.1); Sodium 140 mmol/L (136-145); Total Bilirubin 0.3 mg/dL (0.15-1.2); Total Iron Binding Capacity 365 mcg/dl; Unsaturated Iron Binding 304 ug/dL (112-347)
[2021-11-06 13:51] LABS: 25 Hydroxy Vitamin D 36 ng/mL (30-100)
== END 2021-12-04 23:59 | disposition home or self-care (01) ==
PROVIDERS: PCP Family Medicine; Visit Provider Internal Medicine Medical Oncology
DX: E83.110 Hereditary hemochromatosis (principal); I82.511 Chronic embolism and thrombosis of right femoral vein; Z79.01 Long term (current) use of anticoagulants; M81.0 Age-related osteoporosis without current pathological fracture
CPT/HCPCS: 80053; 82306; 82728; 83540; 83550; 85025; 99214

== ENCOUNTER 2021-12-02 09:11 | Emergency (ER) | payer MEDICARE, BC, SELFPAY ==
[2021-12-02 09:18] VITALS: BP 155/88; PULSE 79; RESP 14; TEMP 36.6; O2SAT 96; BMI 25.0
[2021-12-02 09:23] VITALS: PULSE 73; O2SAT 95
--- NOTE | 2021-12-02 09:24 | W.ED.HEATRA ---
Documented by User: CHAPITO Carreno 12/02/21 12:25 HPI - Head Injury General: Chief complaint: Head Injury Stated complaint: fell; head injury Time Seen by Provider: 12/02/21 09:20 Source: patient and family Mode of arrival: ambulatory Limitations: no limitations History of Present Illness: Patient is a nice 81-year-old female who presents to ED today along with her for concerns of a head injury. Patient states she was weed eating around a [employer] and states one of the branches came up and struck her causing her to then fall forward and strike her head on a water meter. No LOC. Patient states she was concerned as one of her neighbors told her she had blood coming from her right ear. Patient states she is on thinners. Patient denies much of a headache at this time. No lightheadedness or dizziness. Has not had any vomiting. She is ambulating normally. MD Complaint: head injury Onset (ago): hour(s) Mechanism of Injury: fall Place: home Loss of Consciousness: no Location of injury: temporal Severity: mild Radiation: none Context: other anticoagulant use Associated symptoms: Reports no associated symptoms; Deny confusion, nausea, neck pain, syncope, vertigo or vomiting Review of Systems Eyes: Denies: change in vision or blurry vision ENMT: Reports: ear discharge (states she was told she had blood coming from R ear); Denies: ear or mastoid pain, change in hearing, tinnitus or disequilibrium Card: Denies: palpitations, lightheadedness, syncope or pre-syncope GI: Denies: nausea or vomiting Musc: Denies: neck pain, back pain, extremity pain or joint pain Neuro: Denies: headache(s), numbness in extremities, weakness in extremities, sensory changes, lack of coordination, difficulty walking, frequent falls, dizziness, vertigo, confusion, Slurred speech present or difficulty communicating thoughts [facility] PFSH: Medical History Degenerative arthritis Diverticulosis DVT (deep venous thrombosis) chronic right LE DVT GERD (gastroesophageal reflux disease) Hereditary hemochromatosis Hernia History of fracture of right ankle Osteoporosis Surgical History H/O elbow surgery Ulnar nerve repair H/O right wrist surgery Open reduction for right radial head fracture History of ankle surgery ORIF for right ankle fracture History of cataract surgery Bilateral cataract excisions History of cholecystectomy History of lumpectomy Right breast lumpectomy for benign disease Hx of hernia repair Hx of hysterectomy Hysterectomy with unilateral oophorectomy Family History Brother Diabetes Father Stroke Social History Smoking and tobacco status: never smoked Second hand smoke exposure: No Smoking risk assessment/counseling performed?: Yes Alcohol intake: never Desire information about alcohol rehabilitation?: No Counseling given: No Desire information about substance/drug rehabilitation?: No Counseling given: No Adopted: No Caregiver/support person: No Lives independently: Yes Household members: none Housing: House Marital status: / Number of children: 4 Highest education level completed: High School Graduate service: No Current occupational status: retired History of recent travel: No Sexually active: No Current gender identity: Female Agree to transfusion: Yes Physical Exam Const: COMMON NORMALS: no acute distress, average body habitus, patient oriented x3, no limitations, healthy appearing, alert and well nourished GENERAL APPEARANCE: cooperative ORIENTATION/CONSCIOUSNESS: Yes awake, Yes oriented to person, Yes oriented to place and Yes oriented to time HENMT: COMMON NORMALS: normocephalic, TM's normal bilaterally and Normal external nose present HEAD & SCALP: normal to inspection and normocephalic HEAD IMAGES: 1. small hematoma FACE & SINUS: normal facial exam NOSE: Normal external nose present TYMPANIC MEMBRANE: TM's normal bilaterally EAR IMAGES: 1. very small 1mm abrasion/laceration with dried blood; remainder of EAC and TM are normal MOUTH: other (no intraoral injuries noted) Eye: COMMON NORMALS: Equal, round and reactive pupils present and EOMs intact bilaterally GENERAL EYE: appearance normal, both eyes and all related structures PUPIL: Yes Equal, round and reactive pupils present Neck/C-Spine: COMMON NORMALS: full ROM GENERAL: Yes normal visual inspection CERVICAL SPINE: Yes cervical ROM normal, No pain with cervical ROM, No Cervical spine tenderness, No step off deformity and No Paracervical muscle tenderness Resp: COMMON NORMALS: normal respiratory effort and clear to auscultation bilaterally AUSCULTATION: clear to auscultation bilaterally Cardio: COMMON NORMALS: regular rate and regular rhythm RATE: regular rate RHYTHM: regular rhythm Back/Pelvis: COMMON NORMALS: thoracic and lumbar spine normal to inspection, no thoracic nor lumbar tenderness and thoraco-lumbar ROM normal Extremity: COMMON NORMALS: normal to inspection GENERAL: Yes normal exam except as noted Neuro: NIKO COMA SCALE: document GCS findings [place] coma scale eye opening: Spontaneous [place] coma scale verbal response: Orientated [place] coma scale motor response: Obey commands [place] coma scale total score: 15 COMMON NORMALS: patient oriented x3, CN's II-XII intact bilaterally, moves all extremities, no focal motor deficits, no sensory deficits noted and gait normal SENSORIUM/ORIENTATION: Yes alert, Yes oriented to person, Yes oriented to place and Yes oriented to time Skin: NARRATIVE SKIN EXAM: see above documentation for pertinent skin findings Course Vital Signs: Vital signs: Vital Signs Temperature 97.9 F 12/02/21 09:18 Pulse Rate 74 12/02/21 09:53 Respiratory Rate 14 12/02/21 09:18 Blood Pressure 131/72 12/02/21 09:53 Pulse Oximetry 96 12/02/21 09:53 MDM - Head Injury Medcial Decision Making CT head negative. She has a very small abrasion to R EAC explaining the blood from her ear canal. No hemotympanum. At this time patient is stable for DC from the ED. Return to ED precautions given. Lab Data Radiology Impressions Head CT 12/02/21 09:31 IMPRESSION: 1. No acute intracranial hemorrhage or edema. 2. Small amount of soft tissue edema and air over the RIGHT temporalis muscle in the area of pain. 3. No skull fracture. Discharge Plan Discharge Patient Disposition: Home Clinical Impression: Minor closed head injury Condition: Stable Prescriptions: No Action cholecalciferol (vitamin D3) 25 mcg (1,000 unit) capsule 25 mcg PO DAILY 0RF Digestive Advantage Advanced 10 billion cell capsule PO 0RF (DME) Custom Molded Orthotics See Rx Instructions .Route .MEDSUPPLY Qty: 1 0RF Rx Instructions: As directed omeprazole 20 mg capsule,delayed release(DR/EC) See Rx Instructions .ROUTE .COMPLEX Qty: 90 0RF Dose Instruction: TAKE 1 CAPSULE BY MOUTH EVERY DAY Rx Instructions: TAKE 1 CAPSULE BY MOUTH EVERY DAY meloxicam 7.5 mg tablet See Rx Instructions .ROUTE .COMPLEX Qty: 30 0RF Dose Instruction: TAKE 1 TABLET BY MOUTH EVERY DAY Rx Instructions: TAKE 1 TABLET BY MOUTH EVERY DAY Xarelto 10 mg tablet 10 mg PO DAILY Qty: 30 3RF alprazolam 0.25 mg tablet 0.25 mg PO DAILY PRN (Reason: UNKNOWN) 0RF Discharge Orders: Discharge ED (Routine); Ordered 12/02/21 Ordered By: Svetlana Norwood Referrals: Katerina Arrington DO [Primary Care Provider] - Coding Level of Care Code ED Assembler Dc Field Ring for Chg Fwd Exam Comprehensive Documented by User: Ryan Gilbert MD 12/11/21 12:57 HPI - Head Injury General: Chief complaint: Head Injury Stated complaint: fell; head injury Time Seen by Provider: 12/02/21 09:20 PFSH ED PFSH: Medical History Degenerative arthritis Diverticulosis DVT (deep venous thrombosis) chronic right LE DVT GERD (gastroesophageal reflux disease) Hereditary hemochromatosis Hernia History of fracture of right ankle Osteoporosis Surgical History H/O elbow surgery Ulnar nerve repair H/O right wrist surgery Open reduction for right radial head fracture History of ankle surgery ORIF for right ankle fracture History of cataract surgery Bilateral cataract excisions History of cholecystectomy History of lumpectomy Right breast lumpectomy for benign disease Hx of hernia repair Hx of hysterectomy Hysterectomy with unilateral oophorectomy Family History Brother Diabetes Father Stroke Social History Smoking and tobacco status: never smoked Second hand smoke exposure: No Smoking risk assessment/counseling performed?: Yes Alcohol intake: never Desire information about alcohol rehabilitation?: No Counseling given: No Desire information about substance/drug rehabilitation?: No Counseling given: No Adopted: No Caregiver/support person: No Lives independently: Yes Household members: none Housing: House Marital status: / Number of children: 4 Highest education level completed: High School Graduate service: No Current occupational status: retired History of recent travel: No Sexually active: No Current gender identity: Female Agree to transfusion: Yes Physical Exam HENMT: HEAD IMAGES: 1. small hematoma EAR IMAGES: 1. very small 1mm abrasion/laceration with dried blood; remainder of EAC and TM are normal Neuro: NIKO COMA SCALE: document GCS findings [place] coma scale total score: 15 Course Vital Signs: Vital signs: Vital Signs Temperature 97.9 F 12/02/21 09:18 Pulse Rate 74 12/02/21 09:53 Respiratory Rate 14 12/02/21 09:18 Blood Pressure 131/72 12/02/21 09:53 Pulse Oximetry 96 12/02/21 09:53 MDM - Head Injury Lab Data Radiology Impressions Head CT 12/02/21 09:31
--- NOTE | 2021-12-02 09:31 | CT_ITS ---
WS: [id number] CT HEAD NONCONTRAST HISTORY: fall, struck R temporal region TECHNIQUE: Contiguous axial imaging performed through the brain in 2.5 mm imaging. Bone and soft tiss ue windows. Sagittal and coronal reformats reviewed. All CT scans at [facility] use at least one of these dose optimization techniques: automated exposure control; mA and/or kV adjustment per pa tient size (includes targeted exams where dose is matched to clinical indication); or iterative recon struction. DLP: 753.98 mGy.cm COMPARISON: 11/18/2018 No acute intracranial hemorrhage, midline shift or mass effect. Mild atrophy and small vessel ischemic disease. Small lacunar type infarcts in the basal ganglia bila terally. Calcifications in the basal ganglia. Remote stable infarct external capsule on the RIGHT. Ventricles: Normal size with no hydrocephalus. Paranasal sinuses: As visualized are clear. Mastoid air cells: Well pneumatized. Calvarium and scalp: No skull fracture. There is a small amount of subcutaneous edema and air centere d along the RIGHT temporalis muscle in the area of trauma. CT/CT head wo con* [id number] IMPRESSION: 1. No acute intracranial hemorrhage or edema. 2. Small amount of soft tissue edema and air over the RIGHT temporalis muscle in the area of pain. 3. No skull fracture.
[2021-12-02 09:53] VITALS: BP 131/72; PULSE 74; O2SAT 96
== END 2021-12-02 11:39 | disposition home or self-care (01) ==
PROVIDERS: Emergency Provider Physician Assistant; PCP Family Medicine
DX: S09.8XXA Other specified injuries of head, initial encounter (principal); W22.09XA Striking against other stationary object, initial encounter
CPT/HCPCS: 70450; 99283

== ENCOUNTER → 2021-12-15 07:59 | Outpatient (BNVA) | payer MEDICARE, BC, SELFPAY | PROVIDERS: PCP Family Medicine; Visit Provider Podiatrist Foot & Ankle Surgery | DX: B35.1 Tinea unguium (principal); M76.829 Posterior tibial tendinitis, unspecified leg; M19.171 Post-traumatic osteoarthritis, right ankle and foot; M79.672 Pain in left foot | CPT/HCPCS: 99213 ==

== ENCOUNTER → 2022-01-20 10:07 | Outpatient (BNVA) | payer MEDICARE, BC, SELFPAY | PROVIDERS: PCP Family Medicine; Visit Provider Family Medicine | DX: Z13.6 Encounter for screening for cardiovascular disorders (principal); R30.0 Dysuria | CPT/HCPCS: 81000; 87086 ==

== ENCOUNTER 2022-02-12 08:34 | Oncology outpatient (recurring) (ONCR) | payer MEDICARE, BC, SELFPAY ==
[2022-02-12 08:51] LABS: Basophils % 0.7 %; Eosinophils # 0.1 10^3/uL (0.0-0.8); Eosinophils % 0.9 %; Hematocrit 42.3 % (37.0-47.0); Hemoglobin 13.5 g/dL (11.5-15.3); Lymphocytes # 2.1 10^3/uL (0.8-4.8); Lymphocytes % 36.4 %; Mean Corpuscular HGB Conc 31.9 g/dL (30.0-36.0); Mean Corpuscular Hemoglobin 30.1 pg (28.0-34.0); Mean Corpuscular Volume 94.2 fl (81-99); Monocytes # 0.4 10^3/uL (0.2-0.9); Neutrophils # 3.12 10^3/uL (1.8-7.7); Neutrophils % 54.8 %; Nucleated Red Blood Cells % 0 %; Platelet Count 199 10^3/cmm (130-400); Red Blood Count 4.49 10^6/uL (4.1-5.3); Red Cell Distribution Width 13.4 % (12.1-15.1); White Blood Count 5.7 10^3/uL (4.0-10.0)
[2022-02-12 09:14] LABS: Alanine Aminotransferase 18 U/L (0-33); Albumin Level 4.2 g/dL (3.5-5.2); Alkaline Phosphatase 52 U/L (35-105); Anion Gap 12.3 (5-19); Aspartate Amino Transferase 17 U/L (0-32); Blood Urea Nitrogen 16 mg/dL (8-23); Calcium 9.2 mg/dL (8.5-10.5); Carbon Dioxide 27 mmol/L (22-29); Chloride 100 mmol/L (98-107); Ferritin 78 ng/mL (15-150); Globulin 2.7 g/dL (1.3-4.6); Glucose 96 mg/dL (65-115); Iron 129 ug/dL (37-145); Osmolality Calculated 281 mOsm/kg (285-295); Percent Saturation 39.5 % (20-50); Potassium 4.3 mmol/L (3.5-5.1); Sodium 135 mmol/L (136-145); Total Bilirubin 0.5 mg/dL (0.15-1.2); Total Iron Binding Capacity 326 mcg/dl; Total Protein 6.9 g/dL (6.6-8.7); Unsaturated Iron Binding 197 ug/dL (112-347)
== END 2022-03-06 23:59 | disposition home or self-care (01) ==
LOC: ONCMED 08:36
PROVIDERS: Nurse Practitioner; PCP Family Medicine; Visit Provider Internal Medicine Medical Oncology
DX: E83.110 Hereditary hemochromatosis (principal); I82.511 Chronic embolism and thrombosis of right femoral vein; M81.0 Age-related osteoporosis without current pathological fracture
CPT/HCPCS: 80053; 82728; 83540; 83550; 85025

== ENCOUNTER 2022-05-14 09:23 | Oncology outpatient (recurring) (ONCR) | payer MEDICARE, BC, SELFPAY ==
[2022-05-14 09:56] LABS: Basophils % 0.9 %; Eosinophils % 0.9 %; Hematocrit 43.1 % (37.0-47.0); Hemoglobin 13.8 g/dL (11.5-15.3); Lymphocytes # 1.6 10^3/uL (0.8-4.8); Lymphocytes % 37.5 %; Mean Corpuscular Hemoglobin 30.2 pg (28.0-34.0); Mean Corpuscular Volume 94.3 fl (81-99); Mean Platelet Volume 11.4 fL (7.4-10.4); Monocytes # 0.3 10^3/uL (0.2-0.9); Monocytes % 6.8 %; Neutrophils # 2.29 10^3/uL (1.8-7.7); Neutrophils % 53.7 %; Nucleated Red Blood Cells % 0 %; Platelet Count 226 10^3/cmm (130-400); Red Blood Count 4.57 10^6/uL (4.1-5.3); Red Cell Distribution Width 13.1 % (12.1-15.1); White Blood Count 4.3 10^3/uL (4.0-10.0)
[2022-05-14 10:07] LABS: Alanine Aminotransferase 13 U/L (0-33); Albumin Level 4.2 g/dL (3.5-5.2); Alkaline Phosphatase 58 U/L (35-105); Anion Gap 12.2 (5-19); Aspartate Amino Transferase 14 U/L (0-32); Blood Urea Nitrogen 12 mg/dL (8-23); Calcium 9.7 mg/dL (8.5-10.5); Carbon Dioxide 28 mmol/L (22-29); Chloride 105 mmol/L (98-107); Globulin 2.8 g/dL (1.3-4.6); Glucose 106 mg/dL (65-115); Osmolality Calculated 292 mOsm/kg (285-295); Potassium 4.2 mmol/L (3.5-5.1); Sodium 141 mmol/L (136-145); Total Bilirubin 0.4 mg/dL (0.15-1.2)
[2022-05-14 10:28] LABS: Ferritin 114 ng/mL (15-150); Iron 82 ug/dL (37-145); Percent Saturation 25.3 % (20-50); Total Iron Binding Capacity 323 mcg/dl; Unsaturated Iron Binding 241 ug/dL (112-347)
[2022-05-14 15:29] VITALS: BP 112/81; PULSE 84; RESP 16; TEMP 36.4; O2SAT 98
== END 2022-06-06 23:59 | disposition home or self-care (01) ==
PROVIDERS: PCP Family Medicine; Visit Provider Internal Medicine Medical Oncology
DX: E83.110 Hereditary hemochromatosis (principal); I82.511 Chronic embolism and thrombosis of right femoral vein; Z79.899 Other long term (current) drug therapy; Z79.01 Long term (current) use of anticoagulants
CPT/HCPCS: 36415; 80053; 82728; 83540; 83550; 85025; 99195; 99214

== ENCOUNTER 2022-08-14 08:17 | Oncology outpatient (recurring) (ONCR) | payer MEDICARE, BC, SELFPAY ==
[2022-08-14 08:58] LABS: Basophils % 0.8 %; Eosinophils # 0.1 10^3/uL (0.0-0.8); Eosinophils % 1.2 %; Hematocrit 43.8 % (37.0-47.0); Lymphocytes # 1.6 10^3/uL (0.8-4.8); Mean Corpuscular Hemoglobin 29.5 pg (28.0-34.0); Mean Corpuscular Volume 92.2 fl (81-99); Mean Platelet Volume 10.9 fL (7.4-10.4); Monocytes # 0.3 10^3/uL (0.2-0.9); Monocytes % 6.1 %; Neutrophils # 2.92 10^3/uL (1.8-7.7); Neutrophils % 59.5 %; Nucleated Red Blood Cells % 0 %; Platelet Count 274 10^3/cmm (130-400); Red Blood Count 4.75 10^6/uL (4.1-5.3); Red Cell Distribution Width 12.8 % (12.1-15.1); White Blood Count 4.9 10^3/uL (4.0-10.0)
[2022-08-14 09:07] LABS: Alanine Aminotransferase 21 U/L (0-33); Albumin Level 4.1 g/dL (3.5-5.2); Alkaline Phosphatase 71 U/L (35-105); Anion Gap 13.8 (5-19); Aspartate Amino Transferase 24 U/L (0-32); Blood Urea Nitrogen 10 mg/dL (8-23); Calcium 9.4 mg/dL (8.5-10.5); Carbon Dioxide 27 mmol/L (22-29); Chloride 103 mmol/L (98-107); Ferritin 80 ng/mL (15-150); Globulin 3.1 g/dL (1.3-4.6); Glucose 123 mg/dL (65-115); Iron 70 ug/dL (37-145); Osmolality Calculated 290 mOsm/kg (285-295); Percent Saturation 21.5 % (20-50); Potassium 3.8 mmol/L (3.5-5.1); Sodium 140 mmol/L (136-145); Total Bilirubin 0.4 mg/dL (0.15-1.2); Total Iron Binding Capacity 325 mcg/dl; Total Protein 7.2 g/dL (6.6-8.7); Unsaturated Iron Binding 255 ug/dL (112-347)
== END 2022-09-04 23:59 | disposition home or self-care (01) ==
PROVIDERS: PCP Family Medicine; Visit Provider Internal Medicine Medical Oncology
DX: E83.110 Hereditary hemochromatosis (principal)
CPT/HCPCS: 36415; 80053; 82728; 83540; 83550; 85025; 99195

== ENCOUNTER → 2022-10-15 08:59 | Outpatient (BNVA) | payer MEDICARE, BC, SELFPAY | PROVIDERS: PCP Family Medicine; Visit Provider Family Medicine | DX: Z13.6 Encounter for screening for cardiovascular disorders (principal); E83.110 Hereditary hemochromatosis | CPT/HCPCS: 80061; 85025 ==

== ENCOUNTER 2022-11-10 11:14 | Oncology outpatient (recurring) (ONCR) | payer MEDICARE, BC, SELFPAY ==
[2022-11-10 11:48] LABS: Basophils # 0.1 10^3/uL (0.0-0.1); Basophils % 1.2 %; Eosinophils # 0.1 10^3/uL (0.0-0.8); Eosinophils % 1.8 %; Hematocrit 43.2 % (37.0-47.0); Hemoglobin 13.9 g/dL (11.5-15.3); Lymphocytes % 35.6 %; Mean Corpuscular HGB Conc 32.2 g/dL (30.0-36.0); Mean Corpuscular Hemoglobin 29.5 pg (28.0-34.0); Mean Corpuscular Volume 91.7 fl (81-99); Monocytes # 0.4 10^3/uL (0.2-0.9); Neutrophils # 3.07 10^3/uL (1.8-7.7); Nucleated Red Blood Cells % 0 %; Platelet Count 202 10^3/cmm (130-400); Red Blood Count 4.71 10^6/uL (4.1-5.3); Red Cell Distribution Width 13.5 % (12.1-15.1); White Blood Count 5.7 10^3/uL (4.0-10.0)
[2022-11-10 12:16] LABS: Alanine Aminotransferase 20 U/L (0-33); Albumin Level 4.4 g/dL (3.5-5.2); Alkaline Phosphatase 56 U/L (35-105); Aspartate Amino Transferase 25 U/L (0-32); Blood Urea Nitrogen 13 mg/dL (8-23); Calcium 9.3 mg/dL (8.5-10.5); Carbon Dioxide 26 mmol/L (22-29); Chloride 103 mmol/L (98-107); Ferritin 73 ng/mL (15-150); Globulin 2.8 g/dL (1.3-4.6); Glucose 84 mg/dL (65-115); Iron 71 ug/dL (37-145); Osmolality Calculated 287 mOsm/kg (285-295); Percent Saturation 19.9 % (20-50); Sodium 139 mmol/L (136-145); Total Bilirubin 0.5 mg/dL (0.15-1.2); Total Iron Binding Capacity 356 mcg/dl; Total Protein 7.2 g/dL (6.6-8.7); Unsaturated Iron Binding 285 ug/dL (112-347)
== END 2022-12-04 23:59 | disposition home or self-care (01) ==
PROVIDERS: Internal Medicine Medical Oncology; PCP Family Medicine; Visit Provider Internal Medicine Medical Oncology
DX: E83.110 Hereditary hemochromatosis (principal); I82.511 Chronic embolism and thrombosis of right femoral vein; Z79.899 Other long term (current) drug therapy; Z79.01 Long term (current) use of anticoagulants
CPT/HCPCS: 80053; 82728; 83540; 83550; 85025; 99213

== ENCOUNTER → 2022-12-24 09:12 | Outpatient (BNVA) | payer MEDICARE, BC, SELFPAY | PROVIDERS: PCP Family Medicine; Visit Provider Family Medicine | DX: I82.511 Chronic embolism and thrombosis of right femoral vein (principal) | CPT/HCPCS: 85610 ==

== ENCOUNTER → 2023-01-07 08:47 | Outpatient (BNVA) | payer MEDICARE, BC, SELFPAY | PROVIDERS: PCP Family Medicine; Visit Provider Family Medicine | DX: Z79.01 Long term (current) use of anticoagulants (principal) | CPT/HCPCS: 85610 ==

== ENCOUNTER → 2023-02-03 09:11 | Outpatient (BNVA) | payer MEDICARE, BC, SELFPAY | PROVIDERS: PCP Family Medicine; Visit Provider Nurse Practitioner Family | DX: R39.9 Unspecified symptoms and signs involving the genitourinary system (principal); E83.110 Hereditary hemochromatosis | CPT/HCPCS: 81000 ==

== ENCOUNTER 2023-02-10 11:22 | Oncology outpatient (recurring) (ONCR) | payer MEDICARE, BC, SELFPAY ==
[2023-02-10 11:25] VITALS: BMI 24.8
[2023-02-10 11:26] VITALS: BP 137/84; PULSE 79; RESP 18; TEMP 36.2; O2SAT 96
[2023-02-10 11:38] LABS: Basophils # 0.1 10^3/uL (0.0-0.1); Basophils % 1.2 %; Eosinophils # 0.1 10^3/uL (0.0-0.8); Eosinophils % 1.4 %; Hematocrit 41.6 % (36-47); Lymphocytes # 2.1 10^3/uL (0.8-4.8); Lymphocytes % 43.3 %; Mean Corpuscular HGB Conc 32.7 g/dL (30-55); Mean Corpuscular Hemoglobin 29.2 pg (27-33); Mean Corpuscular Volume 89.3 fl (85-98); Mean Platelet Volume 10.6 fL (7.4-10.4); Monocytes # 0.3 10^3/uL (0.2-0.9); Monocytes % 6.1 %; Neutrophils # 2.35 10^3/uL (1.8-7.7); Neutrophils % 47.8 %; Nucleated Red Blood Cells % 0 %; Platelet Count 197 10^3/cmm (157-399); Red Blood Count 4.66 10^6/uL (3.85-5.65); Red Cell Distribution Width 14.1 % (12.1-15.1); White Blood Count 4.92 10^3/uL (3.29-11.43)
[2023-02-10 11:57] LABS: Ferritin 67 ng/mL (15-150)
[2023-02-10 13:27] LABS: Alanine Aminotransferase 17 U/L (0-33); Albumin Level 4.3 g/dL (3.5-5.2); Alkaline Phosphatase 51 U/L (35-105); Anion Gap 16.2 (5-19); Aspartate Amino Transferase 19 U/L (0-32); Blood Urea Nitrogen 11 mg/dL (8-23); Calcium 9.1 mg/dL (8.5-10.5); Carbon Dioxide 25 mmol/L (22-29); Chloride 103 mmol/L (98-107); Globulin 2.8 g/dL (1.3-4.6); Glucose 84 mg/dL (65-115); Osmolality Calculated 289 mOsm/kg (285-295); Potassium 4.2 mmol/L (3.5-5.1); Sodium 140 mmol/L (136-145); Total Bilirubin 0.4 mg/dL (0.15-1.2); Total Protein 7.1 g/dL (6.6-8.7); Unsaturated Iron Binding 293 ug/dL (112-347)
[2023-02-10 14:23] LABS: Iron 56 ug/dL (37-145); Total Iron Binding Capacity 343 mcg/dl
[2023-02-10 14:30] LABS: Percent Saturation 16.3 % (20-50)
== END 2023-03-06 23:59 | disposition home or self-care (01) ==
PROVIDERS: Internal Medicine Medical Oncology; PCP Family Medicine; Visit Provider Internal Medicine Medical Oncology
DX: E83.110 Hereditary hemochromatosis (principal); I82.511 Chronic embolism and thrombosis of right femoral vein; Z79.899 Other long term (current) drug therapy; Z79.01 Long term (current) use of anticoagulants
CPT/HCPCS: 36415; 80053; 82728; 83540; 83550; 85025; 99214

== ENCOUNTER → 2023-02-23 10:32 | Outpatient (BNVA) | payer MEDICARE, BC, SELFPAY | PROVIDERS: PCP Family Medicine; Visit Provider Family Medicine | DX: Z79.01 Long term (current) use of anticoagulants (principal); I82.511 Chronic embolism and thrombosis of right femoral vein | CPT/HCPCS: 85610 ==

== ENCOUNTER 2023-03-05 07:14 | Outpatient (CLI) | payer MEDICARE, BC, SELFPAY ==
--- NOTE | 2023-03-05 07:45 | USCV_ITS ---
Kimberli Everett Age: 82 Gender: F : 1940 Exam Date: 03/05/2023 07:32 Ordering Phys: Katerina Arrington DO Technologist: Bert Vega Exam Location: [facility] [place] Indication: chronic dvt HISTORY: History of dvt. Patient wants to stop taking blood thinner. PROCEDURES: Comparison:. 08/24/18 Venous duplex imaging was performed in only the right lower extremity. The following venous structures were evaluated: common femoral vein, profunda vein, proximal portion of the greater saphenous vein, superficial femoral vein, and the popliteal vein. In addition, the posterior tibial and peroneal trunk were evaluated. FINDINGS: There appears to be an area of chronic dvt within the right SFV. Similar to the prior exam of 08/24/18. All other veins appear free of thrombus at this time. CONCLUSIONS Chronic right lower extremity nonocclusive deep venous thrombosis. Dr. Becki Best DO (Electronically Signed) Final Date: 05 March 2023 09:07 S
== END 2023-03-05 07:15 | disposition home or self-care (01) ==
PROVIDERS: PCP Family Medicine; Visit Provider Family Medicine
DX: I82.511 Chronic embolism and thrombosis of right femoral vein (principal)
CPT/HCPCS: 93971

== ENCOUNTER → 2023-03-25 09:12 | Outpatient (BNVA) | payer MEDICARE, BC, SELFPAY | PROVIDERS: PCP Family Medicine; Visit Provider Family Medicine | DX: E83.110 Hereditary hemochromatosis (principal) | CPT/HCPCS: 85610 ==

== ENCOUNTER → 2023-04-22 09:16 | Outpatient (BNVA) | payer MEDICARE, BC, SELFPAY | PROVIDERS: PCP Family Medicine; Visit Provider Family Medicine | DX: E83.110 Hereditary hemochromatosis (principal); Z79.01 Long term (current) use of anticoagulants | CPT/HCPCS: 85610 ==

== ENCOUNTER 2023-05-12 13:34 | Oncology outpatient (recurring) (ONCR) | payer MEDICARE, BC, SELFPAY ==
[2023-05-12 14:12] VITALS: BP 109/63; PULSE 81; RESP 16; TEMP 35.7; O2SAT 97
[2023-05-12 14:27] LABS: Basophils % 0.9 %; Eosinophils # 0.1 10^3/uL (0.0-0.8); Eosinophils % 1.5 %; Hematocrit 40.5 % (36-47); Lymphocytes # 1.8 10^3/uL (0.8-4.8); Lymphocytes % 38.6 %; Mean Corpuscular HGB Conc 32.3 g/dL (30-55); Mean Corpuscular Hemoglobin 30.5 pg (27-33); Mean Corpuscular Volume 94.2 fl (85-98); Mean Platelet Volume 10.8 fL (7.4-10.4); Monocytes # 0.3 10^3/uL (0.2-0.9); Monocytes % 5.9 %; Neutrophils # 2.41 10^3/uL (1.8-7.7); Neutrophils % 52.7 %; Nucleated Red Blood Cells % 0 %; Platelet Count 204 10^3/cmm (157-399); Red Cell Distribution Width 13.9 % (12.1-15.1); White Blood Count 4.58 10^3/uL (3.29-11.43)
[2023-05-12 14:46] LABS: Albumin Level 3.9 g/dL (3.5-5.2); Alkaline Phosphatase 58 U/L (35-105); Blood Urea Nitrogen 13 mg/dL (8-23); Calcium 8.9 mg/dL (8.5-10.5); Carbon Dioxide 24 mmol/L (22-29); Chloride 105 mmol/L (98-107); Ferritin 63 ng/mL (15-150); Globulin 2.6 g/dL (1.3-4.6); Glucose 138 mg/dL (65-115); Iron 49 ug/dL (37-145); Osmolality Calculated 292 mOsm/kg (285-295); Sodium 140 mmol/L (136-145); Total Bilirubin 0.2 mg/dL (0.15-1.2); Total Iron Binding Capacity 287 mcg/dl; Total Protein 6.5 g/dL (6.6-8.7); Unsaturated Iron Binding 238 ug/dL (112-347)
[2023-05-12 14:48] LABS: Anion Gap 15.2 (5-19); Potassium 4.2 mmol/L (3.5-5.1)
[2023-05-12 14:58] LABS: Alanine Aminotransferase < 5 U/L (0-33); Aspartate Amino Transferase 5 U/L (0-32)
== END 2023-06-06 23:59 | disposition home or self-care (01) ==
PROVIDERS: PCP Family Medicine; Visit Provider Internal Medicine Medical Oncology
DX: E83.110 Hereditary hemochromatosis (principal)
CPT/HCPCS: 36415; 80053; 82728; 83540; 83550; 85025

== ENCOUNTER → 2023-05-20 08:48 | Outpatient (BNVA) | payer MEDICARE, BC, SELFPAY | PROVIDERS: PCP Family Medicine; Visit Provider Family Medicine | DX: E83.110 Hereditary hemochromatosis (principal); Z79.01 Long term (current) use of anticoagulants | CPT/HCPCS: 85025; 85610 ==

== ENCOUNTER → 2023-06-03 09:38 | Outpatient (BNVA) | payer MEDICARE, BC, SELFPAY | PROVIDERS: PCP Family Medicine; Visit Provider Family Medicine | DX: E83.110 Hereditary hemochromatosis (principal); Z79.01 Long term (current) use of anticoagulants | CPT/HCPCS: 85610 ==

== ENCOUNTER → 2023-06-30 09:38 | Outpatient (BNVA) | payer MEDICARE, OTHER, SELFPAY | PROVIDERS: PCP Family Medicine | DX: E83.110 Hereditary hemochromatosis (principal); Z79.01 Long term (current) use of anticoagulants | CPT/HCPCS: 85610 ==

== ENCOUNTER → 2023-07-27 15:39 | Outpatient (BNVA) | payer MEDICARE, OTHER, SELFPAY | PROVIDERS: PCP Family Medicine; Visit Provider Family Medicine | DX: M15.9 Polyosteoarthritis, unspecified (principal); Z79.01 Long term (current) use of anticoagulants; D50.9 Iron deficiency anemia, unspecified; E83.110 Hereditary hemochromatosis; Z13.6 Encounter for screening for cardiovascular disorders | CPT/HCPCS: 80053; 82728; 83550; 85025; 85610; 85651; 86140 ==

== ENCOUNTER 2023-08-18 11:37 | Oncology outpatient (recurring) (ONCR) | payer MEDICARE, OTHER, SELFPAY ==
[2023-08-18 12:13] LABS: Basophils % 0.8 %; Eosinophils % 0.6 %; Hematocrit 41.5 % (36-47); Lymphocytes # 1.8 10^3/uL (0.8-4.8); Lymphocytes % 37.4 %; Mean Corpuscular HGB Conc 32.5 g/dL (30-55); Mean Corpuscular Volume 92.2 fl (85-98); Mean Platelet Volume 10.6 fL (7.4-10.4); Monocytes # 0.4 10^3/uL (0.2-0.9); Monocytes % 7.6 %; Neutrophils # 2.54 10^3/uL (1.8-7.7); Neutrophils % 53.4 %; Nucleated Red Blood Cells % 0 %; Platelet Count 229 10^3/cmm (157-399); Red Cell Distribution Width 13.2 % (12.1-15.1); White Blood Count 4.76 10^3/uL (3.29-11.43)
[2023-08-18 12:40] LABS: Alanine Aminotransferase 14 U/L (0-33); Alkaline Phosphatase 60 U/L (35-105); Aspartate Amino Transferase 20 U/L (0-32); Blood Urea Nitrogen 15 mg/dL (8-23); Calcium 9.3 mg/dL (8.5-10.5); Carbon Dioxide 26 mmol/L (22-29); Chloride 101 mmol/L (98-107); Ferritin 147 ng/mL (15-150); Globulin 2.9 g/dL (1.3-4.6); Glucose 88 mg/dL (65-115); Iron 79 ug/dL (37-145); Osmolality Calculated 286 mOsm/kg (285-295); Percent Saturation 26.2 % (20-50); Sodium 138 mmol/L (136-145); Total Bilirubin 0.3 mg/dL (0.15-1.2); Total Iron Binding Capacity 301 mcg/dl; Total Protein 6.9 g/dL (6.6-8.7); Unsaturated Iron Binding 222 ug/dL (112-347)
[2023-08-18 12:45] LABS: Anion Gap 15.5 (5-19); Potassium 4.5 mmol/L (3.5-5.1)
[2023-08-18 13:31] LABS: D Dimer <= 0.27 ug/mLFEU (0-0.59)
[2023-08-18 15:15] VITALS: BP 112/66; PULSE 84; RESP 17; TEMP 36.9; O2SAT 99
== END 2023-09-05 23:59 | disposition home or self-care (01) ==
PROVIDERS: Internal Medicine; PCP Family Medicine; Visit Provider Internal Medicine Medical Oncology
DX: E83.110 Hereditary hemochromatosis (principal); I82.511 Chronic embolism and thrombosis of right femoral vein; Z79.899 Other long term (current) drug therapy
CPT/HCPCS: 80053; 82728; 83540; 83550; 85025; 85378; 99195; 99214

== ENCOUNTER 2023-08-21 10:12 | Emergency (ER) | payer MEDICARE, OTHER, SELFPAY ==
[2023-08-21 10:22] VITALS: BP 161/76; PULSE 74; RESP 18; TEMP 36.3; O2SAT 98; BMI 24.2
--- NOTE | 2023-08-21 10:24 | XRR_ITS ---
PROCEDURE INFORMATION: Exam: XR Chest Exam date and time: 08/21/2023 11:00 AM Age: 83 years old Clinical indication: Injury or trauma; Fall; Blunt trauma (contusions or hematomas) TECHNIQUE: Imaging protocol: Radiologic exam of the chest. Views: 1 view. COMPARISON: CR XR chest 2V* [id number] 02/10/2017 4:23 PM FINDINGS: Lungs: Unremarkable. No consolidation or mass. Pleural spaces: Unremarkable. No pleural effusion. No pneumothorax. Heart/Mediastinum: Unremarkable. No cardiomegaly. Bones/joints: Unremarkable. XR/XR chest 1V portable [id number] IMPRESSION: No acute findings.
--- NOTE | 2023-08-21 10:24 | CT_ITS ---
WS: [id number] CT CHEST, ABDOMEN AND PELVIS WITH CONTRAST HISTORY: fall TECHNIQUE: Contiguous 5 mm axial imaging performed through the chest, abdomen and pelvis with IV cont rast, oral contrast has not been provided. Coronal and sagittal reformats chest. Coronal and sagittal reformats through the abdomen and pelvis. All CT scans at [facility] use at least one of the se dose optimization techniques: automated exposure control; mA and/or kV adjustment per patient size (includes targeted exams where dose is matched to clinical indication); or iterative reconstruction. CONTRAST: Omnipaque 350; 100 mL IV. DLP: 746.78 mGy.cm COMPARISON: 04/03/[address]: No pulmonary mass or nodule. No pulmonary contusion. No pneumothorax. There is very mild in terstitial thickening and pleural tagging. This is typically seen with interstitial lung disease or a cute pneumonitis. No pericardial or pleural effusions. Heart size is normal. Moderate atherosclerotic changes within the thoracic aorta. Normal size pulmonary artery. Small hilar lymph nodes. No right-sided chest wall contusion is identified. No rib fractures are identified in the area of armani n. No soft tissue contusion or hematoma. Abdomen CT: Normal liver and pancreas. Prior cholecystectomy. Portal vein is normal. 5 mm cyst in the pancreatic distal body was present on the prior CT from 2009 and probably 2004 also. Due to long-ter m stability no additional imaging is necessary. There is no duct dilatation or pancreatic atrophy. No rmal adrenal glands. No renal obstruction. No mesenteric injury. GI tract is negative. There is no obstruction or colitis. Normal appendix. Mild distal colonic divert icular disease. No acute diverticulitis. Pelvic CT: Normal urinary bladder. No free fluid or adenopathy. No soft tissue hematomas throughout the abdomen or pelvis. Very mild stable anterior wedging of L2 similar to 2020. No acute fracture. IMPRESSION: 1. No pulmonary contusion or laceration. 2. No pneumothorax. 3. No mesenteric injury. 4. No hepatic or splenic laceration. No free air. 5. Mild colonic diverticulosis. 6. Normal appendix. 7. No rib fracture identified. No soft tissue contusions.
--- NOTE | 2023-08-21 10:24 | CT_ITS ---
WS: [id number] CT HEAD NONCONTRAST HISTORY: fall TECHNIQUE: Contiguous axial imaging performed through the brain in 2.5 mm imaging. Bone and soft tiss ue windows. Sagittal and coronal reformats reviewed. All CT scans at [facility] use at least one of these dose optimization techniques: automated exposure control; mA and/or kV adjustment per pa tient size (includes targeted exams where dose is matched to clinical indication); or iterative recon struction. DLP: 978.98 mGy.cm COMPARISON: 12/02/2021 No acute intracranial hemorrhage, midline shift or mass effect. Mild atrophy and small vessel ischemic disease. Ventricles: Normal size with no hydrocephalus. No inferior displacement of the cerebellar tonsils. Paranasal sinuses: As visualized are clear. Mastoid air cells: Well pneumatized. Calvarium and scalp: Skull is intact with no soft tissue edema or swelling. IMPRESSION: 1. No acute intracranial hemorrhage or edema. 2. Mild atrophy and small vessel ischemic disease.
--- NOTE | 2023-08-21 10:29 | ED_ITS ---
HPI - Fall General: Chief Complaint: Abdominal Pain Stated Complaint: fall, right side pain Time Seen by Provider: 08/21/23 10:16 Source: patient Mode of arrival: ambulatory Limitations: no limitations History of Present Illness: 83-year-old female states she fell down a stair yesterday. States she landed on her right side and also hit her head. She is complaining of some right-sided chest pain mild right upper quadrant abdominal pain and a headache she denies any loss conscious she is on Coumadin. Associated symptoms-after fall: Reports abdominal pain, chest pain and headache(s); Denies neck pain Review of Systems Const: Denies: fever(s), chills, body aches or change in appetite ENMT: Denies: throat pain or dental pain Card: Reports: chest pain Resp: Denies: dyspnea GI: Reports: abdominal pain; Denies: nausea, vomiting or diarrhea Musc: Denies: neck pain or back pain Neuro: Reports: headache(s) PFSH ED PFSH: Medical History Allergic rhinitis due to allergen History of fracture of right ankle Diverticulosis Degenerative arthritis DVT (deep venous thrombosis) chronic right LE DVT GERD (gastroesophageal reflux disease) Hereditary hemochromatosis Hernia Osteoporosis Surgical History History of cataract surgery Bilateral cataract excisions H/O right wrist surgery Open reduction for right radial head fracture History of lumpectomy Right breast lumpectomy for benign disease Hx of hernia repair History of ankle surgery ORIF for right ankle fracture Hx of hysterectomy Hysterectomy with unilateral oophorectomy History of cholecystectomy H/O elbow surgery Ulnar nerve repair Family History Brother Diabetes Father Stroke Social History Smoking and tobacco/nicotine status: never used tobacco/nicotine Second hand smoke exposure: No Alcohol intake: never Substance/Drug Use: never Adopted: No Caregiver/support person: No Lives independently: Yes Household members: none Housing: House Marital status: / Number of children: 4 Highest education level completed: High School Graduate service: No Current occupational status: retired Sexually active: No Do you think of yourself as: Straight/Heterosexual Current gender identity: Female Agree to transfusion: Yes Physical Exam Const: COMMON NORMALS: no acute distress, patient oriented x3 and healthy appearing HENMT: COMMON NORMALS: normocephalic HEAD & SCALP: normocephalic OTHER: right parietal tenderness Neck/C-Spine: COMMON NORMALS: full ROM and supple Chest: COMMONS NORMALS: normal inspection of the chest OTHER: right chest tenderness Resp: COMMON NORMALS: normal respiratory effort, No retractions, No use of accessory muscles and clear to auscultation bilaterally AUSCULTATION: clear to auscultation bilaterally Cardio: COMMON NORMALS: regular rate, regular rhythm and No murmurs present (Cardio) RATE: regular rate RHYTHM: regular rhythm GI: COMMON NORMALS: Normal to inspection, nondistended, normoactive bowel sounds present, Soft to palpation and no masses PALPATION: Yes Soft to palpation OTHER: tenderness over right upper quadrant Extremity: COMMON NORMALS: normal to inspection and full ROM Neuro: COMMON NORMALS: patient oriented x3, moves all extremities and no focal motor deficits Psych: COMMON NORMALS: mental status grossly normal, Normal thought process present and cooperative THOUGHT PROCESS: Normal thought process present Skin: COMMON NORMALS: no rashes or lesions noted and no wounds GENERAL SKIN EXAM: no rashes or lesions noted Course Vital Signs: Vital signs: Vital Signs Temperature 97.4 F L 08/21/23 10:22 Pulse Rate 74 08/21/23 10:22 Respiratory Rate 18 08/21/23 10:22 Blood Pressure 161/76 08/21/23 10:22 Pulse Oximetry 98 08/21/23 10:22 Oxygen Delivery Me thod Room Air 08/21/23 10:22 MDM - Fall Medical Decision Making Patient presents for chest wall and abdominal pain from a fall she also hit her head and is on Coumadin imaging here is all normal she is well-appearing here she is stable for discharge she is follow-up with PCP and return if worsening she understands agrees to plan. Medical Records I reviewed the patient's medical records. Lab Data I reviewed the patient's lab results. Laboratory Results PT 29.20 SECONDS (12.1-14.9) H 08/21/23 11:37 INR 2.64 (0.8-1.2) H 08/21/23 11:37 All radiology interpretation(s) finalized by discharge Discharge Plan Discharge Patient Disposition: Home Clinical Impression: Chest wall pain, Fall Condition: Stable Prescriptions: No Action (DME) Custom Molded Orthotics See Rx Instructions .Route .MEDSUPPLY Qty: 1 0RF Rx Instructions: As directed warfarin 5 mg tablet See Rx Instructions .ROUTE .COMPLEX Qty: 30 6RF Dose Instruction: TAKE 1 TABLET BY MOUTH EVERY DAY Rx Instructions: 7.5 MG ON WEDNESDAY AND WEDNESDAY- 5 MG ALL OTHER DAYS alprazolam 0.25 mg tablet 0.25 mg PO DAILY PRN (Reason: Anxiety) omeprazole 20 mg capsule,delayed release(DR/EC) 20 mg PO DAILY Discharge Orders: Discharge ED (Routine); Ordered 08/21/23 Ordered By: Soni Raya Referrals: Katerina Arrington DO [Primary Care Provider] - 4-7 days Discharge Diet: Advance as tolerated Discharge Activity: Resume usual activity Patient Instructions: Chest Wall Pain (ED) Coding Level of Care Code ED [employer] Load Trash Truck Driver for Doroteo Chapin
[2023-08-21] MEDS: iohexol 350 mg/mL 500 mL Btl (per mL) IV (11:30)
[2023-08-21 11:53] LABS: INR 2.64 (0.8-1.2)
[2023-08-21 12:06] VITALS: BP 161/76; PULSE 74; RESP 18; TEMP 36.3; O2SAT 98
== END 2023-08-21 12:08 | disposition home or self-care (01) ==
PROVIDERS: Emergency Provider Emergency Medicine; PCP Family Medicine
DX: R07.89 Other chest pain (principal); Z79.01 Long term (current) use of anticoagulants
CPT/HCPCS: 36415; 70450; 71045; 71260; 74177; 85610; 99285; Q9967

== ENCOUNTER → 2023-09-24 09:50 | Outpatient (BNVA) | payer MEDICARE, OTHER, SELFPAY | PROVIDERS: PCP Family Medicine; Visit Provider Family Medicine | DX: E83.110 Hereditary hemochromatosis (principal) | CPT/HCPCS: 85610 ==

== ENCOUNTER 2023-11-17 12:45 | Oncology outpatient (recurring) (ONCR) | payer MEDICARE, OTHER, SELFPAY ==
[2023-11-17 13:07] LABS: Basophils # 0.1 10^3/uL (0.0-0.1); Basophils % 1.8 %; Eosinophils # 0.1 10^3/uL (0.0-0.8); Eosinophils % 1.3 %; Hematocrit 40.7 % (36-47); Lymphocytes # 1.9 10^3/uL (0.8-4.8); Lymphocytes % 42.1 %; Mean Corpuscular HGB Conc 32.4 g/dL (30-55); Mean Corpuscular Hemoglobin 30.3 pg (27-33); Mean Corpuscular Volume 93.3 fl (85-98); Monocytes # 0.3 10^3/uL (0.2-0.9); Neutrophils # 2.16 10^3/uL (1.8-7.7); Neutrophils % 47.6 %; Nucleated Red Blood Cells % 0 %; Platelet Count 207 10^3/cmm (157-399); Red Blood Count 4.36 10^6/uL (3.85-5.65); Red Cell Distribution Width 13.3 % (12.1-15.1); White Blood Count 4.54 10^3/uL (3.29-11.43)
[2023-11-17 13:32] LABS: Alanine Aminotransferase 11 U/L (0-33); Albumin Level 4.3 g/dL (3.5-5.2); Alkaline Phosphatase 49 U/L (35-105); Aspartate Amino Transferase 17 U/L (0-32); Blood Urea Nitrogen 15 mg/dL (8-23); Calcium 9.2 mg/dL (8.5-10.5); Carbon Dioxide 25 mmol/L (22-29); Chloride 100 mmol/L (98-107); Ferritin 44 ng/mL (15-150); Globulin 2.8 g/dL (1.3-4.6); Glucose 133 mg/dL (65-115); Iron 76 ug/dL (37-145); Osmolality Calculated 287 mOsm/kg (285-295); Percent Saturation 22.7 % (20-50); Sodium 137 mmol/L (136-145); Total Bilirubin 0.3 mg/dL (0.15-1.2); Total Iron Binding Capacity 334 mcg/dl; Total Protein 7.1 g/dL (6.6-8.7); Unsaturated Iron Binding 258 ug/dL (112-347)
[2023-11-17 13:34] LABS: Anion Gap 15.8 (5-19); Potassium 3.8 mmol/L (3.5-5.1)
== END 2023-12-05 23:59 | disposition home or self-care (01) ==
PROVIDERS: Internal Medicine; PCP Family Medicine; Visit Provider Internal Medicine Medical Oncology
DX: E83.110 Hereditary hemochromatosis (principal); I82.511 Chronic embolism and thrombosis of right femoral vein
CPT/HCPCS: 36415; 80053; 82728; 83540; 83550; 85025

== ENCOUNTER → 2023-11-22 11:52 | Outpatient (BNVA) | payer MEDICARE, OTHER, SELFPAY | PROVIDERS: PCP Family Medicine; Visit Provider Family Medicine | DX: Z13.6 Encounter for screening for cardiovascular disorders (principal); Z79.01 Long term (current) use of anticoagulants | CPT/HCPCS: 85610 ==

== ENCOUNTER → 2023-12-13 10:50 | Outpatient (BNVA) | payer MEDICARE, OTHER, SELFPAY | PROVIDERS: PCP Family Medicine; Visit Provider Nurse Practitioner Family | DX: Z79.01 Long term (current) use of anticoagulants (principal) | CPT/HCPCS: 85610 ==

== ENCOUNTER → 2023-12-29 08:57 | Outpatient (BNVA) | payer MEDICARE, OTHER, SELFPAY | PROVIDERS: PCP Family Medicine; Visit Provider Family Medicine Adult Medicine | DX: Z79.01 Long term (current) use of anticoagulants (principal); I82.511 Chronic embolism and thrombosis of right femoral vein; I25.10 Atherosclerotic heart disease of native coronary artery without angina pectoris; K21.9 Gastro-esophageal reflux disease without esophagitis; E83.110 Hereditary hemochromatosis | CPT/HCPCS: 80053; 82728; 83550; 85025; 85610 ==

== ENCOUNTER 2024-02-17 07:00 | Oncology outpatient (recurring) (ONCR) | payer MEDICARE, OTHER, SELFPAY | END 2024-03-06 23:59 | disposition home or self-care (01) | LOC: ONCMED 03-01 07:58 | PROVIDERS: PCP Family Medicine Adult Medicine; Visit Provider Internal Medicine Medical Oncology | DX: E83.110 Hereditary hemochromatosis (principal); Z79.01 Long term (current) use of anticoagulants | CPT/HCPCS: 85610 ==

== ENCOUNTER 2024-03-28 13:07 | Oncology outpatient (recurring) (ONCR) | payer MEDICARE, OTHER, SELFPAY ==
[2024-03-28 13:47] LABS: Basophils # 0.1 10^3/uL (0.0-0.1); Basophils % 1.2 %; Eosinophils # 0.1 10^3/uL (0.0-0.8); Eosinophils % 1.4 %; Hematocrit 40.2 % (36-47); Lymphocytes # 1.6 10^3/uL (0.8-4.8); Lymphocytes % 38.6 %; Mean Corpuscular HGB Conc 32.3 g/dL (30-55); Mean Corpuscular Volume 92.8 fl (85-98); Monocytes # 0.3 10^3/uL (0.2-0.9); Neutrophils # 2.16 10^3/uL (1.8-7.7); Neutrophils % 51.8 %; Nucleated Red Blood Cells % 0 %; Platelet Count 190 10^3/cmm (157-399); Red Blood Count 4.33 10^6/uL (3.85-5.65); Red Cell Distribution Width 13.9 % (12.1-15.1); White Blood Count 4.17 10^3/uL (3.29-11.43)
[2024-03-28 14:12] LABS: Alanine Aminotransferase 17 U/L (0-33); Albumin Level 4.1 g/dL (3.5-5.2); Alkaline Phosphatase 48 U/L (35-105); Anion Gap 15.3 (5-19); Aspartate Amino Transferase 22 U/L (0-32); Blood Urea Nitrogen 10 mg/dL (8-23); Calcium 8.5 mg/dL (8.5-10.5); Carbon Dioxide 26 mmol/L (22-29); Chloride 106 mmol/L (98-107); Creatinine Clr Calc Pharmacy 55.1476; Globulin 2.6 g/dL (1.3-4.6); Glucose 97 mg/dL (65-115); Magnesium 1.9 mg/dL (1.7-2.3); Osmolality Calculated 295 mOsm/kg (285-295); Potassium 4.3 mmol/L (3.5-5.1); Sodium 143 mmol/L (136-145); Total Bilirubin 0.3 mg/dL (0.15-1.2); Total Protein 6.7 g/dL (6.6-8.7)
[2024-03-28 14:27] LABS: INR 1.63 (0.8-1.2)
[2024-03-28 16:52] LABS: Ferritin 58 ng/mL (15-150); Iron 50 ug/dL (37-145); Percent Saturation 14.9 % (20-50); Total Iron Binding Capacity 335 mcg/dl; Unsaturated Iron Binding 285 ug/dL (112-347)
== END 2024-04-06 23:59 | disposition home or self-care (01) ==
PROVIDERS: Nurse Practitioner Family; PCP Family Medicine Adult Medicine; Visit Provider Internal Medicine Hematology & Oncology
DX: E83.110 Hereditary hemochromatosis (principal); Z79.01 Long term (current) use of anticoagulants; I82.511 Chronic embolism and thrombosis of right femoral vein
CPT/HCPCS: 36415; 80053; 82728; 83540; 83550; 83735; 85025; 85610; 99214

== ENCOUNTER → 2024-04-04 10:13 | Outpatient (BNVA) | payer MEDICARE, OTHER, SELFPAY | PROVIDERS: PCP Family Medicine Adult Medicine; Visit Provider Family Medicine Adult Medicine | DX: Z86.718 Personal history of other venous thrombosis and embolism (principal) | CPT/HCPCS: 85610 ==

== ENCOUNTER 2024-04-14 09:50 | Oncology outpatient (recurring) (ONCR) | payer MEDICARE, OTHER, SELFPAY ==
--- NOTE | 2024-04-14 10:15 | MR_ITS ---
WS: [id number] MRI BRAIN WITH AND WITHOUT CONTRAST HISTORY: hemianopsia COMPARISON: CT head 08/21/2023, MRI brain 11/20/2019 TECHNIQUE: Multiplanar imaging performed through the brain with MultiHance 15 ml's IV. No acute infarcts are seen. Rees-white matter differentiation is well preserved. Mild bilateral symme tric atrophy. Mild small vessel ischemic changes. No significant progression since the prior examinat ion. No susceptibility artifacts or prior lacunar infarcts. Ventricles and extra-axial spaces are normal. Clivus and pituitary gland are normal. Visualized posterior fossa and brainstem are also normal. Postcontrast images are negative for masses or vascular malformations. Dural venous sinuses are normal. Paranasal sinuses: Well aerated with no significant disease. Mastoid air cells: Normal. Calvarium and scalp: Normal. MR/MR head wo/w con [id number] IMPRESSION: 1. No acute or chronic infarct. 2. Mild small vessel disease. Similar to 11/20/2019. 3. No enhancing masses. No intracranial hemorrhage or hemosiderin. 4. No sinus disease.
[2024-04-14] MEDS: gadobenate dimeglumine 20 mL vial 15 ML IV (12:18)
== END 2024-05-06 23:59 | disposition home or self-care (01) ==
PROVIDERS: PCP Family Medicine Adult Medicine; Visit Provider Nurse Practitioner Family
DX: H53.47 Heteronymous bilateral field defects; I67.89 Other cerebrovascular disease
CPT/HCPCS: 70553

== ENCOUNTER → 2024-05-23 15:45 | Outpatient (BNVA) | payer MEDICARE, OTHER, SELFPAY | PROVIDERS: PCP Family Medicine Adult Medicine; Visit Provider Internal Medicine Cardiovascular Disease | DX: I21.19 ST elevation (STEMI) myocardial infarction involving other coronary artery of inferior wall (principal); R07.9 Chest pain, unspecified; R01.1 Cardiac murmur, unspecified | CPT/HCPCS: 93005; 99204 ==

== ENCOUNTER 2024-06-05 07:39 | Oncology outpatient (recurring) (ONCR) | payer MEDICARE, OTHER, SELFPAY ==
--- NOTE | 2024-05-30 12:45 | USCV_ITS ---
Kimberli Everett Age: 83 Gender: F : 1940 Exam Date: 05/30/2024 12:48 Ordering Phys: Inez Meza MD ([email or web address]) Technologist: CT Exam Location: [facility] [place] Indication: BP: 125 / 79 HR: 74 Rhythm: Sinus Technical Quality: Adequate MEASUREMENTS (Male / Female) Normal Values 2D ECHO LVOT Diameter 2.0 cm LV Ejection Fraction MOD 4C 67.8 % LV Ejection Fraction MOD 2C 61.3 % LV Ejection Fraction 2C AL 63.8 % LA Diameter 3.8 cm RA Systolic Volume 4C AL 18.3 ml RA Systolic Volume 4C MOD 18.8 ml LA Sys Volume AL 27.9 cm cubed LA Sys Volume Index AL 15.9 cm cubed/m squared Aorta at Sinotubular Diameter 2.6 cm IVC Diameter 1.9 cm M-MODE LA Ao Ratio MM 1.4 AV Cusp Separation MM 1.3 cm DOPPLER AV Peak Velocity 218.3 cm/s LVOT Peak Velocity 118.0 cm/s AV Area Cont Eq vti 1.8 cm squared AV Area Cont Eq pk 1.7 cm squared MV Peak Velocity 101.0 cm/s MV Area PHT 3.3 cm squared Mitral E to A Ratio 0.8 TV Peak Velocity 149.5 cm/s TR Peak Velocity 181.5 cm/s TR Peak Gradient 13.2 mmHg TR Mean Velocity 129.0 cm/s TR Mean Gradient 7.4 mmHg TR Velocity Time Integral 37.3 cm TV Peak E Velocity 72.0 cm/s PV Peak Velocity 80.0 cm/s FINDINGS Left Ventricle Normal left ventricular size and systolic function, EF 64%.no regional wall motion abnormalities. Mild left ventricular hypertrophy. Grade I/IV diastolic dysfunction (abnormal relaxation filling pattern), normal to mildly elevated filling pressures. Right Ventricle The right ventricle is normal in size and function. Right Atrium The right atrium is normal in size. Left Atrium The left atrium is normal in size. Mitral Valve No gross abnormalities no Aortic Valve Trace aortic valve regurgitation. Aortic valve sclerosis. Tricuspid Valve Trace tricuspid valve regurgitation. Pulmonic Valve No gross abnormalities noted Pericardium Normal pericardium without effusion. Aorta Normal ascending aorta dimension. IVC Normal inferior vena cava. CONCLUSIONS Normal left ventricular size and systolic function, EF 64%.no regional wall motion abnormalities. Mild left ventricular hypertrophy. Grade I/IV diastolic dysfunction (abnormal relaxation filling pattern), normal to mildly elevated filling pressures. Aortic valve sclerosis. Trace aortic valve regurgitation. Trace tricuspid valve regurgitation. There is no pericardial effusion. There are no intracardiac masses. Compared to the study from 04/19/2014, there may not be a significant change Dr Inez Meza MD [facility] (Electronically Signed) Final Date: 04 June 2024 19:03 S
[2024-06-05 08:09] VITALS: BMI 23.3
--- NOTE | 2024-06-05 08:11 | NMCV_ITS ---
NM cm perf SPECT r/s* [id number] Kimberli Everett Age: 83 Gender: F : 1940 Exam Date: 06/05/2024 08:11 Ordering Phys: Inez Meza MD ([email or web address]) Technologist: ROSARIO Gentile Exam Location: [facility] Indications: cp STRESS TEST [facility] IMAGE PROTOCOL Rest/Stress 1 Lexiscan Day Radiopharmaceutical Dose (mCi) Administration Site Administered by Rest: Tc-99m 10.5 IV Joselyn Webster, EMERGENCY DETAIL DRIVER Sestamibi Stress:Tc-99m 32.7 IV Joselyn Webster, EMERGENCY DETAIL DRIVER Sestamibi Rest: 05-Jun-2024 60 Discovery 630 Stress: 05-Jun-2024 30 Discovery 630 0.4mg Lexiscan. Images obtained in supine and prone position. SPECT RESULTS Technical Quality: Good Raw Data Analysis: Normal Image Corrections: No attenuation or motion correction applied Summed Stress Score: 2 Summed Rest Score: 1 Summed Difference Score: 1 PERFUSION FINDINGS Small area of slightly decreased visit because noted in the mid basal and mid inferolateral region with the supine imaging. Some reversibility was noted in the basal region. However with the prone imaging, no significant reversibility was noted. FUNCTIONAL RESULTS (calculated via Gated SPECT) Stress Image LV EF (%): 94 Stress EDV (mL):35 TID: 0.6 Stress ESV (mL):2 FUNCTIONAL FINDINGS: Segmental wall motion analysis revealing no gross wall motion abnormalities IMPRESSIONS 1. Myocardial perfusion imaging revealing a small area of reversibility in the inferolateral region with the supine imaging suggesting ischemia in the distribution of the left circumflex artery. However because of the inconsistency, the reliability is questionable 2. Normal LV ejection fraction of 94% 3. LV wall motion analysis revealing no gross wall motion abnormalities. 4. Normal LV volume No similar previous studies are available for comparison Clinical correlation is recommended Dr Inez Meza MD [facility] (Electronically Signed) Final Date: 06 June 2024 17:31 S
--- NOTE | 2024-06-05 08:11 | ECG_ITS ---
Xceedium Test Date: 2024-06-05 Pat Name: Kimberli Everett Department: Room: Gender: Female Appointment Setter: : 1940 Requested By: Inez Meza Order Number: [id number] Len MD: Inez Meza M.D. Interpretive Statements Lung unchanged pre/post procedure; Intraprocedure shortess of breath; Symptoms resoled by discharge Patient is feeling okay. PROCEDURE: At the baseline, the EKG revealed normal sinus rhythm with a poor R wave progression. Incomplete right bundle branch block. The baseline heart was 74 bpm with a blood pressue of 133/76 mm of Hg Lexiscan was infused over a period of 20 seconds. A total of 0.4 milligrams of Lexiscan was infused. The stress phase was continued for a total of 5 minutes. Heart rate at the end of the stress phase was 85 bpm with a blood pressure 124/74 mm of Hg. The EKG at the peak infusion revealed no significant changes. Sestamibi was injected 20 seconds after the Lexiscan infusion. Heart rate at the end of the recovery phase was 84 bpm with a blood pressure of 128/78 mm of Hg. CONCLUSION: 1. No significant EKG changes with the LexiScan infusion 2. No LexiScan induced chest pain or cardiac arrhythmia 3. Normal blood pressure and heart rate response 4. Sestamibi/sestamibi perfusion scan pending; see separate report. Electronically Signed On 06-11-2024 16:51:41 FLOOR COVERING LAYER by Inez Meza M.D. [email or web address]
[2024-06-05] MEDS: regadenoson 0.4 Mg/5 ml Syringe IVP (09:07)
[2024-06-05 09:25] VITALS: BP 130/76; PULSE 84
== END 2024-06-06 23:59 | disposition home or self-care (01) ==
LOC: CDL 07:58 → ONCMED 09:17 → CDL 06-06
PROVIDERS: PCP Family Medicine Adult Medicine; Visit Provider Internal Medicine Cardiovascular Disease
DX: H53.47 Heteronymous bilateral field defects (principal); I67.89 Other cerebrovascular disease; R01.1 Cardiac murmur, unspecified
CPT/HCPCS: 36415; 78452; 93017; 93306; 96374; A9500; J2785

== ENCOUNTER 2024-06-27 10:54 | Oncology outpatient (recurring) (ONCR) | payer MEDICARE, OTHER, SELFPAY ==
[2024-06-27 11:40] LABS: Basophils # 0.1 10^3/uL (0.0-0.1); Basophils % 1.1 %; Eosinophils % 0.7 %; Lymphocytes # 1.8 10^3/uL (0.8-4.8); Lymphocytes % 39.3 %; Mean Corpuscular HGB Conc 32.1 g/dL (30-55); Mean Corpuscular Hemoglobin 29.8 pg (27-33); Mean Corpuscular Volume 92.9 fl (85-98); Mean Platelet Volume 10.8 fL (7.4-10.4); Monocytes # 0.3 10^3/uL (0.2-0.9); Monocytes % 6.7 %; Neutrophils # 2.41 10^3/uL (1.8-7.7); Neutrophils % 52.2 %; Nucleated Red Blood Cells % 0 %; Platelet Count 182 10^3/cmm (157-399); Red Blood Count 4.63 10^6/uL (3.85-5.65); Red Cell Distribution Width 13.2 % (12.1-15.1); White Blood Count 4.61 10^3/uL (3.29-11.43)
[2024-06-27 12:48] LABS: Alanine Aminotransferase 14 U/L (0-33); Albumin Level 4.2 g/dL (3.5-5.2); Alkaline Phosphatase 55 U/L (35-105); Anion Gap 16.1 (5-19); Aspartate Amino Transferase 23 U/L (0-32); Blood Urea Nitrogen 12 mg/dL (8-23); Calcium 9.4 mg/dL (8.5-10.5); Carbon Dioxide 27 mmol/L (22-29); Chloride 99 mmol/L (98-107); Globulin 2.7 g/dL (1.3-4.6); Glucose 92 mg/dL (65-115); Osmolality Calculated 285 mOsm/kg (285-295); Potassium 4.1 mmol/L (3.5-5.1); Sodium 138 mmol/L (136-145); Total Bilirubin 0.4 mg/dL (0.15-1.2); Total Protein 6.9 g/dL (6.6-8.7)
[2024-06-27 13:38] LABS: Ferritin 100 ng/mL (15-150); Iron 94 ug/dL (37-145); Percent Saturation 28.4 % (20-50); Total Iron Binding Capacity 330 mcg/dl; Unsaturated Iron Binding 236 ug/dL (112-347)
[2024-06-27] MEDS: sodium chloride 0.9% 250 ML IV (15:29)
[2024-06-27 15:53] VITALS: BP 123/76; PULSE 91; RESP 16; TEMP 37.1; O2SAT 99
== END 2024-07-07 23:59 | disposition home or self-care (01) ==
LOC: ONCMED 10:55
PROVIDERS: Nurse Practitioner Family; PCP Family Medicine Adult Medicine; Visit Provider Internal Medicine Cardiovascular Disease
DX: E83.110 Hereditary hemochromatosis (principal); Z79.899 Other long term (current) drug therapy
CPT/HCPCS: 36415; 80053; 82728; 83540; 83550; 85025; 96360; 99195; J7050

== ENCOUNTER → 2024-08-21 09:41 | Outpatient (BNVA) | payer MEDICARE, OTHER, SELFPAY | PROVIDERS: PCP Family Medicine Adult Medicine; Visit Provider Nurse Practitioner Family | DX: R07.89 Other chest pain (principal); R01.1 Cardiac murmur, unspecified; Z86.718 Personal history of other venous thrombosis and embolism; Z79.01 Long term (current) use of anticoagulants | CPT/HCPCS: 99213 ==

== ENCOUNTER 2024-10-03 09:37 | Oncology outpatient (recurring) (ONCR) | payer MEDICARE, OTHER, SELFPAY ==
[2024-10-03 10:02] LABS: Basophils # 0.1 10^3/uL (0.0-0.1); Basophils % 1.7 %; Eosinophils # 0.1 10^3/uL (0.0-0.8); Eosinophils % 1.1 %; Hematocrit 39.8 % (36-47); Lymphocytes # 1.7 10^3/uL (0.8-4.8); Lymphocytes % 35.8 %; Mean Corpuscular HGB Conc 32.2 g/dL (30-55); Mean Corpuscular Hemoglobin 29.1 pg (27-33); Mean Corpuscular Volume 90.5 fl (85-98); Mean Platelet Volume 10.4 fL (7.4-10.4); Monocytes # 0.3 10^3/uL (0.2-0.9); Neutrophils # 2.55 10^3/uL (1.8-7.7); Neutrophils % 54.4 %; Nucleated Red Blood Cells % 0 %; Platelet Count 196 10^3/cmm (157-399); Red Cell Distribution Width 13.4 % (12.1-15.1); White Blood Count 4.69 10^3/uL (3.29-11.43)
[2024-10-03 10:45] LABS: Alanine Aminotransferase 11 U/L (0-33); Albumin Level 4.2 g/dL (3.5-5.2); Alkaline Phosphatase 52 U/L (35-105); Anion Gap 14.2 (5-19); Aspartate Amino Transferase 15 U/L (0-32); Blood Urea Nitrogen 11 mg/dL (8-23); Calcium 9.2 mg/dL (8.5-10.5); Carbon Dioxide 25 mmol/L (22-29); Chloride 104 mmol/L (98-107); Creatinine Clr Calc Pharmacy 54.6785; Ferritin 34 ng/mL (15-150); Globulin 2.7 g/dL (1.3-4.6); Glucose 119 mg/dL (65-115); Iron 92 ug/dL (37-145); Osmolality Calculated 289 mOsm/kg (285-295); Percent Saturation 25.6 % (20-50); Potassium 4.2 mmol/L (3.5-5.1); Sodium 139 mmol/L (136-145); Total Bilirubin 0.4 mg/dL (0.15-1.2); Total Iron Binding Capacity 358 mcg/dl; Total Protein 6.9 g/dL (6.6-8.7); Unsaturated Iron Binding 266 ug/dL (112-347)
== END 2024-10-04 23:59 | disposition home or self-care (01) ==
PROVIDERS: PCP Family Medicine Adult Medicine; Visit Provider Internal Medicine Medical Oncology
DX: E83.110 Hereditary hemochromatosis (principal)
CPT/HCPCS: 36415; 80053; 82728; 83540; 83550; 85025; 99214

== ENCOUNTER → 2025-04-10 15:33 | Outpatient (BNVA) | payer MEDICARE, OTHER, SELFPAY | PROVIDERS: PCP Family Medicine Adult Medicine; Visit Provider Internal Medicine Cardiovascular Disease | DX: R01.1 Cardiac murmur, unspecified (principal); R07.89 Other chest pain; E83.110 Hereditary hemochromatosis; Z79.01 Long term (current) use of anticoagulants; Z86.718 Personal history of other venous thrombosis and embolism | CPT/HCPCS: 99214 ==